=== PATIENT | female | born 1950 | race Caucasian/White ===

== ENCOUNTER 2017-07-30 22:45 | Emergency (ER) | payer MEDICARE, BC ==
[2017-07-30 22:56] VITALS: BP 161/68
--- NOTE | 2017-07-30 23:01 | EDM.PDOC ---
ED HPI GENERAL MEDICAL PROBLEM - General Chief Complaint: Genitourinary Problem Stated Complaint: POSS UTI Time Seen by Provider: 07/30/17 23:01 Source of Information: Reports: Patient History Limitations: Reports: No Limitations - History of Present Illness INITIAL COMMENTS - FREE TEXT/NARRATIVE: 67-year-old female presents to the ED with a 2 to three-day history of dysuria urgency and frequency. She reports that she is prone to urinary tract infections due to having multiple sclerosis incomplete emptying of her bladder at times. Is currently not self catheterizing. She is developed left flank pain tonight with associated nausea and pain. She feels cold all the time with chills but no defined fever. No history of kidney stones. She's had multiple surgeries on her right lower extremity after total knee replacement and then avulsion of the tibial tendon. His not been on antibiotics for this surgery. She is immobilized in a cast brace. Onset: Gradual Onset Date: 07/27/17 (Pain left flank started tonight and this afternoon.) Duration: Day(s):, Getting Worse Location: Reports: Back (Left flank pain) Quality: Reports: Ache, Burning, Throbbing Severity: Moderate Improves with: Reports: None (8 out of 10 pain) Worsens with: Reports: None Context: Denies: Activity, Exercise, Lifting, Sick Contact, Trauma, Other Associated Symptoms: Reports: Fever/Chills, Loss of Appetite (Chills but no fever), Malaise, Nausea/Vomiting. Denies: No Other Symptoms, Confusion, Chest Pain, Cough, cough w sputum, Headaches, Seizure, Shortness of Breath, Syncope Treatments BAGGAGE AGENT: Reports: Other (see below) (Nausea without vomiting none.) Left Flank Pain Score (Numeric/FACES): 6 - Related Data Allergies Allergy/AdvReac Type Severity Reaction Status Date / Time acetaminophen Allergy Other Verified 07/29/15 11:34 [From Excedrin Back & Body] adhesive Allergy Swelling Verified 07/29/15 11:34 aspirin Allergy Other Verified 07/29/15 11:34 [From Excedrin Back & Body] bacitracin Allergy Rash Verified 07/29/15 11:34 calcium carbonate Allergy Other Verified 07/29/15 11:34 [From Excedrin Back & Body] dimethyl fumarate Allergy Other Verified 07/29/15 11:34 [From Tecfidera] glatiramer acetate Allergy Other Verified 07/29/15 11:34 [From Copaxone] gramicidin D Allergy Rash Verified 07/29/15 11:34 interferon beta-1a Allergy Other Verified 07/29/15 11:34 [From Avonex] metronidazole Allergy Rash Verified 07/29/15 11:34 neomycin Allergy Rash Verified 07/29/15 11:34 oxacillin Allergy Rash Verified 07/29/15 11:34 polymyxin B Allergy Rash Verified 07/29/15 11:34 Sulfa (Sulfonamide Allergy Other Verified 07/29/15 11:34 Antibiotics) hydroxyzine AdvReac Agitation Verified 07/29/15 11:34 Home Meds: Home Meds Baclofen 20 mg PO QID 07/29/15 [History] Celecoxib [CeleBREX] 200 mg PO DAILY PRN 07/29/15 [History] Cholecalciferol (Vitamin D3) [Vitamin D3] 5,000 unit PO DAILY 07/29/15 [History] Cranberry Caps 2 cap PO DAILY 07/29/15 [History] Cyanocobalamin (Vitamin B-12) [Vitamin B-12] 1,000 mcg PO DAILY 07/29/15 [ History] Multivitamin [Multivitamins] 2 cap PO BID 07/29/15 [History] Muscle Relax 2 cap PO TID 07/29/15 [History] Occular Formula 2 cap PO DAILY 07/29/15 [History] Oclu Med 1 drop EYEBOTH BID 07/29/15 [History] Perfect Food (Greens) 2 cap PO QID 07/29/15 [History] Psyllium 500 mg PO DAILY 07/29/15 [History] Sertraline HCl 100 mg PO DAILY 07/29/15 [History] Sovereign Silver 5 drop PO DAILY 07/29/15 [History] Ubidecarenone/Red Yeast Rice [Co Q-10 Red Yeast Rice Softgel] 2 cap PO DAILY 06/09 [History] Vitamin B-100 100 mg PO DAILY 07/29/15 [History] rOPINIRole [Requip] 0.5 mg PO QID 07/29/15 [History] Krill Oil 2 cap PO DAILY 07/13/16 [History] Multivitamin with Minerals [Hair, Skin and Nails] 1 cap PO DAILY 07/13/16 [ History] Red Yeast Rice 1,200 mg PO DAILY 07/13/16 [History] Teriflunomide [Aubagio] 14 mg PO DAILY 07/13/16 [History] Nitrofurantoin Monohyd/M-Cryst [Macrobid 100 mg Capsule] 100 mg PO BID #16 capsule 07/31/17 [Rx] Past Medical History Musculoskeletal History: Reports: Muscular Dystrophy Other Musculoskeletal History: diagnosed 2000 Neurological History: Reports: MS (Dx'd 2000) Psychiatric History: Reports: Depression - Past Surgical History Musculoskeletal Surgical History: Reports: Arthroscopic Procedure Social & Family History - Living Situation & Occupation Living situation: Reports: , with Spouse ED ROS GENERAL - Review of Systems Review Of Systems: See Below Constitutional: Reports: Chills, Malaise, Weakness, Fatigue, Decreased Appetite , Weight Loss HEENT: Reports: No Symptoms Respiratory: Reports: No Symptoms Cardiovascular: Reports: No Symptoms Endocrine: Reports: Fatigue GI/Abdominal: Reports: Abdominal Pain (Left upper quadrant abdominal pain left lower quadrant abdominal pain is suprapubic pressure discomfort.) : Reports: Dysuria, Flank Pain, Frequency, Incontinence (Occasional incontinence.), Urgency (Left flank pain) Musculoskeletal: Reports: Back Pain, Other (Right leg pain post total knee replacement and tendon avulsion.) Skin: Reports: No Symptoms Neurological: Reports: Difficulty Walking, Gait Disturbance (Due to multiple sclerosis.), Other Psychiatric: Reports: Anxiety ED EXAM, RENAL/ - Physical Exam Exam: See Below Exam Limited By: No Limitations General Appearance: Alert, WD/WN, Moderate Distress (Appears lethargic and flat affect.) Eye Exam: Bilateral Eye: Normal Inspection Respiratory/Chest: No Respiratory Distress, Lungs Clear, Normal Breath Sounds, No Accessory Muscle Use Cardiovascular: Normal Peripheral Pulses, Regular Rate, Rhythm, No Edema, No Gallop, No Murmur, Bradycardia (50/m.) GI/Abdominal: Normal Bowel Sounds, Soft, Tender. No: Guarding, Rigid ( Tenderness left upper quadrant left midabdomen and suprapubically without rebound or guarding.), Rebound Back Exam: CVA Tenderness (L), Decreased Range of Motion. No: CVA Tenderness (R ) (Mild left CVA tenderness) Extremities: Other (Right lower extremity as had right total knee replacement she is immobilized in cast boot brace.) Neurological: Alert, Oriented, CN II-XII Intact, Normal Cognition, Abnormal Gait , Other (Comes to the ED in a wheelchair.) Psychiatric: Flat Affect Skin Exam: Warm, Dry, Intact, Normal Color, No Rash EKG INTERPRETATION EKG Date: 07/31/17 Time: 00:01 Rhythm: Other (Sinus bradycardia with frequent PACs.) Rate (Beats/Min): 45 Swengel: Normal P-Wave: Present QRS: Other (There is a nonspecific intraventricular conduction delay likely an incomplete right bundle branch block pattern developing.) QT: Prolonged (QT interval is moderately prolonged.) EKG Interpretation Comments: Abnormal ECG Course - Vital Signs Last Recorded V/S: Last Vital Signs Temp 36.9 C 07/30/17 22:52 Pulse 50 L 07/30/17 22:52 Resp 18 07/30/17 22:52 BP 161/68 H 07/30/17 22:52 Pulse Ox 96 07/30/17 22:52 - Orders/Labs/Meds Orders: Active Orders 24 hr Category Date Time Status EKG Documentation Completion [RC] STAT Care 07/30/17 23:57 Active CULTURE URINE [RM] Stat Lab 07/31/17 00:47 Received UA W/MICROSCOPIC [URIN] Stat Lab 07/30/17 23:26 Ordered Dextrose 5%-0.9% NaCl [Dextrose 5%-Normal Saline] 1,000 Med 07/30/17 23:15 Active ml IV ASDIRECTED Medication Orders Dextrose/Sodium Chloride (Dextrose 5%-Normal Saline) 1,000 mls @ 500 mls/hr IV ASDIRECTED FRANTZ Last Admin: 07/30/17 23:33 Dose: 500 mls/hr Labs: Laboratory Tests 07/30/17 07/30/17 07/30/17 Range/Units 23:25 23:25 23:26 WBC 9.95 (3.98-10.04) K/mm3 RBC 4.48 (3.98-5.22) M/mm3 Hgb 13.9 (11.2-15.7) gm/L Hct 41.8 (34.1-44.9) % MCV 93.3 (79.4-94.8) fl MCH 31.0 (25.6-32.2) pg MCHC 33.3 (32.2-35.5) g/dl RDW Std Deviation 43.5 (36.4-46.3) fL Plt Count 214 (182-369) K/mm3 MPV 9.9 (9.4-12.3) fl Neutrophils % (Manual) 70 H (40-60) % Band Neutrophils % 1 (0-10) % Lymphocytes % (Manual) 24 (20-40) % Atypical Lymphs % 0 % Monocytes % (Manual) 2 (2-10) % Eosinophils % (Manual) 2 (0.7-5.8) % Basophils % (Manual) 1 (0.1-1.2) Platelet Estimate Adequate RBC Morph Comment Normal Sodium 141 (136-145) mEq/L Potassium 4.5 (3.5-5.1) mEq/L Chloride 103 (98-107) mEq/L Carbon Dioxide 25 (21-32) mEq/L Anion Gap 17.5 H (5-15) BUN 33 H (7-18) mg/dL Creatinine 1.3 H (0.55-1.02) mg/dL Est Cr Clr Drug Dosing 41.40 mL/min Estimated GFR (MDRD) 41 (>60) mL/min BUN/Creatinine Ratio 25.4 H (14-18) Glucose 132 H (80-115) mg/dL Calcium 9.3 (8.5-10.1) mg/dL Total Bilirubin 0.5 (0.2-1.0) mg/dL AST 17 (15-37) U/L ALT 18 (14-59) U/L Alkaline Phosphatase 96 (46-116) U/L C-Reactive Protein < 0.2 (<1.0) mg/dL Total Protein 7.3 (6.4-8.2) g/dl Albumin 3.7 (3.4-5.0) g/dl Globulin 3.6 gm/dL Albumin/Globulin Ratio 1.0 (1-2) Urine Color Yellow (Yellow) Urine Appearance Slt cloudy H (Clear) Urine pH 5.5 (5.0-8.0) Ur Specific Tutor Key > or = 1.030 (1.005-1.030) Urine Protein 1+ H (Negative) Urine Glucose (UA) Negative (Negative) Urine Ketones Negative (Negative) Urine Occult Blood Negative (Negative) Urine Nitrite Negative (Negative) Urine Bilirubin Negative (Negative) Urine Urobilinogen 0.2 (0.2-1.0) Ur Leukocyte Esterase 2+ H (Negative) Urine RBC 0-5 (0-5) /hpf Urine WBC 10-20 H (0-5) /hpf Ur Epithelial Cells 0-5 (0-5) /hpf Urine Bacteria Moderate H (FEW) /hpf Urine Mucus Many H (FEW) /hpf Meds: Medications Generic Name Dose Route Start Last Admin Trade Name Frenatty PRN Reason Stop Dose Admin Dextrose/Sodium Chloride 1,000 mls @ 500 mls/hr 07/30/17 23:15 07/30/17 23:33 Dextrose 5%-Normal Saline IV 500 mls/hr ASDIRECTED FRANTZ Administration Discontinued Medications Generic Name Dose Route Start Last Admin Trade Name Freq PRN Reason Stop Dose Admin Hydromorphone HCl 0.5 mg 07/30/17 23:09 07/30/17 23:36 Dilaudid IVPUSH 07/30/17 23:10 0.5 mg ONETIME ONE Administration Ceftriaxone Sodium 1 gm/ 100 mls @ 200 mls/hr 07/31/17 00:46 07/31/17 00:52 Sodium Chloride IV 07/31/17 01:15 200 mls/hr ONETIME ONE Administration Ondansetron HCl 4 mg 07/30/17 23:10 07/30/17 23:34 Zofran IVPUSH 07/30/17 23:11 4 mg ONETIME ONE Administration - Radiology Interpretation Free Text/Narrative:: 67-year-old female with known multiple sclerosis presents to the ED with a 2 to three-day history of dysuria urgency and frequency. Tonight she is developed left sided abdominal pain rating up and towards the left flank suggesting developing pyelonephritis. She is known to have recurrent urinary tract infections due to incomplete emptying of her urinary bladder due to MS. Has not been on antibiotics to her recollection for greater than 3 months. Is currently nauseated and pain is 8 out of 10. Plan IV will be normal saline at open. Will give her Dilaudid 0.5 mg IV with Zofran 4 mg IV for pain and nausea relief. Urinalysis of course will be obtained as well as routine lab work including a CRP. Blood cultures will not be obtained at this time as she is afebrile. - Re-Assessments/Exams Free Text/Narrative Re-Assessment/Exam: 07/31/17 00:16 patient's heart rate was noted to drop down as low as 30/m. However her blood pressure is maintained even at this low rate. This most likely represents autonomic nervous system dysfunction. ECG shows sinus bradycardia at 50/m with no signs of a complete heart block. There are frequent PACs as well causing compensatory pauses. There is a nonspecific intraventricular conduction delay most likely an early right bundle branch block developing. 07/31/17 00:41Labs reveal a white count of 9.95 with 70% neutrophils and 1% bands reported. Hemoglobin is 13.9 with hematocrit of 41.8. White count is normal 214,000. Sodium is 141 with potassium of 4.5. Chloride 103 with a bicarbonate of 25. Anion gap is elevated at 17.5 BUN is 33 indicating volume depletion. Creatinine is 1.3. GFR is estimated to be 41. Glucose is 132. Calcium is 9.3. Bilirubin 0.5 liver function otherwise normal. C-reactive protein is less than 0.2. Urinalysis shows 1+ proteinuria 2+ leukocyte esterase and 10-20 WBCs per high-power field with moderate bacteria. Urine culture will be ordered. 07/31/17 01:37 patient has completed her IV Rocephin 1 g. She will be discharged on Macrobid 100 mg twice daily for the next 8 days to fully eradicate urinary tract infection. Advise follow-up with Dr. Montenegro in 14 days time after the antibodies are completed to make sure that there urinary tract infection is completely eradicated. During her stay in the she did develop a significant bradycardia at 30/m. ECG shows sinus bradycardia at 45/m with no blocks appreciated. Her QT interval is markedly prolonged at 523. Therefore it is important to watch out for medications that may prolong the QT interval. She may have autonomic nervous system dysfunction related to her multiple sclerosis. She was advised that if she has fainting episodes or severe dizzy episodes it may be due to development of bradycardia and she may in fact require pacemaker in the future. Departure - Departure Time of Disposition: 01:31 Disposition: Home, Self-Care 01 Condition: Fair Clinical Impression: UTI, Urinary tract infectious disease, Bradycardia by electrocardiogram, Multiple sclerosis - Discharge Information Prescriptions: Nitrofurantoin Monohyd/M-Cryst [Macrobid 100 mg Capsule] 100 mg PO BID #16 capsule Referrals: Trae Layne MD [Primary Care Provider] - Forms: ED Department Discharge Additional Instructions: Evaluation the emergency room today in regards to left flank pain left upper abdominal pain compatible with urinary tract infection symptoms. Associated dysuria urgency and frequency for the last 2-3 days preceding left upper abdominal and flank pain. Lab work reveals a fairly normal white count suggesting stenosis serious bacteremia or bacterial in your bloodstream from infection lower I believe you are starting to develop an early kidney infection on the left side. Urinalysis is positive for infective process. You're treated with initial dose metabolic Rocephin 1 g intravenously while in the ED. Antibiotics will be continued at home i.e. Macrobid 100 mg twice daily for the next 8 days to clear up urinary tract infection completely. Suggest follow-up in the clinic 14 days after finishing antibiotics for repeat urinalysis to make sure the infection has been fully eradicated. Evaluate in the ER her heart rate did drop as low as 30/m. Blood pressure was maintained in spite of this low heart rate. This low heart rate is likely due to something called autonomic nervous system dysfunction which is related to your multiple sclerosis. Her automatic nervous system controls how faster heartbeats how fast we breathe how fast her intestine lines move etc. At this time no interventions are required since her blood pressure was maintained. However if you develop dizzy spells in the future it may be due to a low heart rate and you may require a pacemaker. Follow-up with Dr. Montenegro in this regard as well. - My Orders Last 24 Hours: My Active Orders 07/30/17 23:15 Dextrose 5%-0.9% NaCl [Dextrose 5%-Normal Saline] 1,000 ml IV ASDIRECTED 07/30/17 23:26 UA W/MICROSCOPIC [URIN] Stat 07/30/17 23:57 EKG Documentation Completion [RC] STAT 07/31/17 00:47 CULTURE URINE [RM] Stat - Assessment/Plan Last 24 Hours: My Active Orders 07/30/17 23:15 Dextrose 5%-0.9% NaCl [Dextrose 5%-Normal Saline] 1,000 ml IV ASDIRECTED 07/30/17 23:26 UA W/MICROSCOPIC [URIN] Stat 07/30/17 23:57 EKG Documentation Completion [RC] STAT 07/31/17 00:47 CULTURE URINE [RM] Stat
[2017-07-30] MEDS ORDERED: HYDROmorphone 0.5 MG/0.5 ML SYRINGE IVPUSH ONE (23:09)
[2017-07-30] MEDS ORDERED: Ondansetron 4 MG/2 ML SDV IVPUSH ONE (23:10)
[2017-07-30] MEDS ORDERED: Dextrose 5%-0.9% NaCl 1,000 ML IV SCH (23:15)
[2017-07-31] MEDS ORDERED: cefTRIAXone 1 GM in Sodium Chloride 0.9% 100 ML IV ONE (00:46)
[2017-08-04] MEDS ORDERED: Cefepime 2 GM in Premix Bag 1 BAG IV SCH (08:30)
== END 2017-07-31 01:39 | disposition home or self-care (01) ==
LOC: JD.ED 22:45
DX: G35 Multiple sclerosis (principal); R00.1 Bradycardia, unspecified; N39.0 Urinary tract infection, site not specified; Z88.6 Allergy status to analgesic agent; Z88.8 Allergy status to other drugs, medicaments and biological substances; Z88.1 Allergy status to other antibiotic agents; Z88.2 Allergy status to sulfonamides; Z79.899 Other long term (current) drug therapy
CPT/HCPCS: 36415; 51798; 80053; 81001; 85007; 85027; 86140; 87086; 87088; 87186; 93005; 96361; 96365; 96375; 99284; J0696; J1170; J2405; J7030; J7042; 93010

== ENCOUNTER 2019-03-10 21:51 | Observation (INO) | payer MEDICARE, BC ==
--- NOTE | 2019-03-10 22:07 | EDM.PDOC ---
ED HPI GENERAL MEDICAL PROBLEM - General Chief Complaint: Abdominal Pain Stated Complaint: ABDOMINAL PAIN Time Seen by Provider: 03/10/19 22:01 Source of Information: Reports: Patient History Limitations: Reports: No Limitations - History of Present Illness INITIAL COMMENTS - FREE TEXT/NARRATIVE: 68-year-old female presents to the ED with abdominal pain off and on for the last 2 months. However is been worse the last 5 days. She reports intermittent nausea and vomiting since Friday evening March 06. Intermittent upper abdominal pain as well as right lower quadrant pain. No appreciable chills but feels she has been running a low-grade fever. No genitourinary complaints. Previous abdominal surgeries that of a cholecystectomy and total abdominal hysterectomy and BSO. Having loose diarrhea stools as well without any blood. Since the bag tonight is bilious. Dates she did have a CT of the abdomen and pelvis done yesterday per Dr. Trae Montenegro's orders. She states she did eat a little supper last night but vomited probably this morning upon getting up and most of it was undigested food. She doesn't believe that she got into any bad food and she's not had any steroid or diarrhea. Not drink alcohol. She was started on Prilosec 20 mg once daily on March 08. No other new medications. Denies any hematemesis. Denies any cough or sputum production. Feels very weak and dizzy. Onset: Gradual Onset Date: 03/06/19 (Has been having pain in her abdomen off and on for the last 2 months that has not been investigated. She did weight loss.) Duration: Day(s):, Intermittent, Waxing/Waning Location: Reports: Abdomen (Recurrent nausea and vomiting with upper abdominal pain and also some pain in the right lower quadrant of the abdomen.) Quality: Reports: Ache Severity: Moderate Improves with: Reports: None Worsens with: Reports: Eating, Movement Context: Denies: Activity, Exercise (Attending up and moving around seems to make the nausea worse. She cannot give me a firm history of vertigo symptoms.), Lifting, Sick Contact, Trauma Associated Symptoms: Reports: Fever/Chills, Loss of Appetite, Malaise, Nausea/ Vomiting, Weakness (For last 4-1/2 days). Denies: No Other Symptoms, Confusion , Chest Pain, Cough, cough w sputum, Diaphoresis, Headaches, Rash, Seizure, Shortness of Breath, Syncope (He'll she's been running a low-grade fever.) Treatments [employer]: Reports: Other (see below) (None.) Abdomen Pain Score (Numeric/FACES): 5 - Related Data Allergies Allergy/AdvReac Type Severity Reaction Status Date / Time acetaminophen [From Percocet] Allergy Nausea and Verified 03/10/19 22:17 Vomiting adhesive Allergy Swelling Verified 03/10/19 22:17 bacitracin Allergy Rash Verified 03/10/19 22:17 gramicidin D Allergy Rash Verified 03/10/19 22:17 metronidazole Allergy Rash Verified 03/10/19 22:17 neomycin Allergy Rash Verified 03/10/19 22:17 ondansetron [From Zofran] Allergy Nausea and Verified 03/10/19 22:17 Vomiting oxacillin Allergy Rash Verified 03/10/19 22:17 oxycodone [From Percocet] Allergy Nausea and Verified 03/10/19 22:17 Vomiting pneumococcal vaccine Allergy Rash Verified 03/10/19 22:17 polymyxin B Allergy Rash Verified 03/10/19 22:17 silicone Allergy Redness Verified 03/10/19 22:17 soap Allergy Rash Verified 03/10/19 22:17 Sulfa (Sulfonamide Allergy Rash Verified 03/10/19 22:17 Antibiotics) teriflunomide [From Aubagio] Allergy Other Verified 03/10/19 22:17 dimethyl fumarate AdvReac Other Verified 03/10/19 22:17 [From Tecfidera] glatiramer acetate AdvReac Other Verified 03/10/19 22:17 [From Copaxone] hydroxyzine AdvReac Agitation Verified 03/10/19 22:17 interferon beta-1a AdvReac Other Verified 03/10/19 22:17 [From Avonex] Home Meds: Home Meds Baclofen 20 mg PO TID 07/29/15 [History] Cranberry Caps 500 mg PO DAILY 07/29/15 [History] Multivitamin [Multivitamins] 2 cap PO BID 07/29/15 [History] Oclu Med 1 drop EYEBOTH BID 07/29/15 [History] Psyllium 700 mg PO DAILY 07/29/15 [History] rOPINIRole [Requip] 1 mg PO BID 07/29/15 [History] Magnesium Malate 1,000 mg PO QID 08/03/17 [History] traMADol [Ultram] 50 mg PO Q4HR PRN 08/03/17 [History] Ascorbic Acid [Vitamin C] 1,000 mg PO DAILY 03/10/19 [History] Cholecalciferol (Vitamin D3) [Vitamin D] 5,000 units PO DAILY 03/10/19 [History] Denosumab [Prolia] 60 mg SQ ASDIRECTED 03/10/19 [History] Omeprazole Magnesium [Prilosec Otc] 20 mg PO DAILY 03/10/19 [History] buPROPion [buPROPion XL] 150 mg PO DAILY 03/10/19 [History] Past Medical History Genitourinary History: Reports: Renal Calculus, UTI, Recurrent Musculoskeletal History: Reports: Muscular Dystrophy Other Musculoskeletal History: diagnosed 2000 Neurological History: Reports: MS (Dx'd 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 particularly involving her lower extremities.) Psychiatric History: Reports: Depression Endocrine/Metabolic History: Reports: Osteoporosis, Vitamin D Deficiency - Past Surgical History Musculoskeletal Surgical History: Reports: Arthroscopic Procedure Social & Family History - Family History Family Medical History: Noncontributory - Caffeine Use Caffeine Use: Reports: Tea - Living Situation & Occupation Living situation: Reports: , with Spouse ED ROS GENERAL - Review of Systems Review Of Systems: See Below Constitutional: Reports: Fever, Malaise, Weakness, Fatigue, Decreased Appetite, Weight Loss. Denies: Chills (Subjective) HEENT: Reports: Glasses Respiratory: Reports: No Symptoms, Shortness of Breath Cardiovascular: Reports: No Symptoms Endocrine: Reports: Fatigue GI/Abdominal: Reports: Abdominal Pain (See history of present illness.), Diarrhea, Decreased Appetite (Intermittently since the evening of March 06), Nausea, Vomiting : Reports: No Symptoms Musculoskeletal: Reports: Other (Committed muscle cramps particularly in her calves tonight.) Skin: Reports: No Symptoms Neurological: Reports: Confusion, Dizziness, Numbness, Tingling (Hands and feet) , Difficulty Walking, Weakness (Due to weakness) Psychiatric: Reports: Anxiety, Depression Hematologic/Lymphatic: Reports: No Symptoms Immunologic: Reports: No Symptoms ED EXAM, GI/ABD - Physical Exam Exam: See Below Exam Limited By: No Limitations General Appearance: Alert, WD/WN, Moderate Distress, Other (Appears quite anxious and distraught. She is hanging onto the emesis bag in the examining room. Temperatures 36.9 heart rate was 106 at the bedside. Respiratory of 22 with O2 sats of 95% on room air. BP elevated 1 9498.) Eyes: Bilateral: Normal Appearance (No scleral icterus and no blood flow pallor. ) Throat/Mouth: Normal Inspection, Normal Lips, Normal Oropharynx, Other Head: Atraumatic, Normocephalic (Tongue is moist) Neck: Normal Inspection, Supple, Non-Tender, Full Range of Motion. No: Lymphadenopathy (L), Lymphadenopathy (R) Respiratory/Chest: Lungs Clear (Mild tachypnea.), Normal Breath Sounds, No Accessory Muscle Use, Chest Non-Tender, Respiratory Distress Cardiovascular: Normal Peripheral Pulses, No Edema, No Gallop, No Murmur, No Rub , Tachycardia (Mild tachycardia at the bedside 10 6/m.) GI/Abdominal Exam: Normal Bowel Sounds, Soft, No Organomegaly, No Mass, Pelvis Stable, Tender (Mostly in the epigastrium which appears to be muscular in origin. Also mildly tender in the right lower quadrant near McBurney's point but no real guarding or rebound.). No: Guarding, Rigid, Rebound Back Exam: Normal Inspection, Full Range of Motion. No: CVA Tenderness (L), CVA Tenderness (R) Extremities: Normal Inspection, Normal Range of Motion, Non-Tender, No Pedal Edema Neurological: Alert, Oriented, CN II-XII Intact, Normal Cognition Psychiatric: Anxious Skin Exam: Warm, Dry, Intact, Normal Color, No Rash EKG INTERPRETATION EKG Date: 03/10/19 Time: 22:29 Rhythm: Other (Sinus bradycardia) Rate (Beats/Min): 46 (Patient is dry heaving/vomiting at this time) [place]: Normal P-Wave: Enlarged (Severe left atrial hypertrophy) QRS: Other (There is an incomplete right bundle branch block pattern. Early R- wave transition-consider right ventricular hypertrophy versus septal hypertrophy pattern. Total R-wave in lead 1 suggest left ventricular hypertrophy pattern.) ST-T: Other (Nonspecific T-wave flattening in lead 3 and aVF.) QT: Prolonged (Moderately prolonged) EKG Interpretation Comments: Abnormal ECG Course - Vital Signs Last Recorded V/S: Last Vital Signs Temp 36.9 C 03/10/19 21:58 Pulse 104 H 03/10/19 21:58 Resp 22 H 03/10/19 21:58 BP 194/98 H 03/10/19 21:58 Pulse Ox 95 03/10/19 21:58 - Orders/Labs/Meds Orders: Active Orders 24 hr Category Date Time Status Admission Status [Patient Status] [ADT] Routine ADT 03/11/19 07:11 Ordered EKG Documentation Completion [RC] STAT Care 03/10/19 22:10 Active CULTURE URINE [RM] Stat Lab 03/10/19 23:04 Received D5 1/2 NS w/ 40 mEq/L KCl 1,000 ml Med 03/11/19 07:15 Ordered IV ASDIRECTED Dextrose 5%-0.9% NaCl [Dextrose 5%-Normal Saline] 1,000 Med 03/10/19 23:45 Active ml IV ASDIRECTED Dextrose 5%-Lactated Ringers 1,000 ml Med 03/10/19 22:15 Active IV ASDIRECTED Ketorolac [Toradol] Med 03/10/19 23:30 Active 30 mg IVPUSH ONETIME cefTRIAXone [Rocephin] 2 gm Med 03/10/19 23:45 Active Sodium Chloride 0.9% [Normal Saline] 100 ml IV Q24H Medication Orders Dextrose/Lactated Ringer's (Dextrose 5%-Lactated Ringers) 1,000 mls @ 999 mls/ hr IV ASDIRECTED [facility] Last Admin: 03/10/19 22:31 Dose: 999 mls/hr Ceftriaxone Sodium 2 gm/ (Sodium Chloride) 100 mls @ 200 mls/hr IV Q24H [facility] Last Admin: 03/11/19 00:10 Dose: 200 mls/hr Dextrose/Sodium Chloride (Dextrose 5%-Normal Saline) 1,000 mls @ 200 mls/hr IV ASDIRECTED [facility] Last Admin: 03/11/19 00:54 Dose: 200 mls/hr Potassium Chloride/Dextrose/Sod Cl (D5 1/2 Ns W/ 40 Meq/L Kcl) 1,000 mls @ 150 mls/hr IV ASDIRECTED [facility] Ketorolac Tromethamine (Toradol) 30 mg IVPUSH ONETIME [facility] Last Admin: 03/10/19 23:33 Dose: 30 mg Labs: Laboratory Tests 01/15/20 01/15/20 01/15/20 Range/Units 22:25 22:25 22:25 WBC 5.63 (3.98-10.04) K/mm3 RBC 4.39 (3.98-5.22) M/mm3 Hgb 13.7 (11.2-15.7) gm/dl Hct 40.8 (34.1-44.9) % MCV 92.9 (79.4-94.8) fl MCH 31.2 (25.6-32.2) pg MCHC 33.6 (32.2-35.5) g/dl RDW Std Deviation 45.6 (36.4-46.3) fL Plt Count 280 (182-369) K/mm3 MPV 9.5 (9.4-12.3) fl Neutrophils % (Manual) 59 (40-60) % Band Neutrophils % 3 (0-10) % Lymphocytes % (Manual) 34 (20-40) % Atypical Lymphs % 0 % Monocytes % (Manual) 3 (2-10) % Eosinophils % (Manual) 1 (0.7-5.8) % Basophils % (Manual) 0 L (0.1-1.2) Platelet Estimate Adequate Plt Morphology Comment Normal RBC Morph Comment Normal Sodium 145 (136-145) mEq/L Potassium 2.5 L (3.5-5.1) mEq/L Chloride 105 (98-107) mEq/L Carbon Dioxide 29 (21-32) mEq/L Anion Gap 13.5 (5-15) BUN 8 (7-18) mg/dL Creatinine 1.1 H (0.55-1.02) mg/dL Est Cr Clr Drug Dosing 48.26 mL/min Estimated GFR (MDRD) 50 (>60) mL/min BUN/Creatinine Ratio 7.3 L (14-18) Glucose 134 H (80-115) mg/dL Lactic Acid 1.1 (0.4-2.0) mmol/L Calcium 9.6 (8.5-10.1) mg/dL Magnesium 2.1 (1.8-2.4) mg/dl Total Bilirubin 0.8 (0.2-1.0) mg/dL AST 13 L (15-37) U/L ALT 19 (14-59) U/L Alkaline Phosphatase 131 H (46-116) U/L C-Reactive Protein 0.3 (<1.0) mg/dL NT-Pro-B Natriuret Pep (0-125) pg/mL Total Protein 7.6 (6.4-8.2) g/dl Albumin 3.7 (3.4-5.0) g/dl Globulin 3.9 gm/dL Albumin/Globulin Ratio 1.0 (1-2) Lipase 81 (73-393) U/L Urine Color (Yellow) Urine Appearance (Clear) Urine pH (5.0-8.0) Ur Specific [place] (1.005-1.030) Urine Protein (Negative) Urine Glucose (UA) (Negative) Urine Ketones (Negative) Urine Occult Blood (Negative) Urine Nitrite (Negative) Urine Bilirubin (Negative) Urine Urobilinogen (0.2-1.0) Ur Leukocyte Esterase (Negative) Urine RBC (0-5) /hpf Urine WBC (0-5) /hpf Urine WBC Clumps (NOT SEEN) /hpf Ur Squamous Epith Cells (0-5) /hpf Amorphous Sediment (NOT SEEN) /hpf Urine Bacteria (FEW) /hpf Urine Mucus (FEW) /hpf Ketones (0.0-0.3) mM 03/10/19 03/10/19 03/10/19 Range/Units 22:25 22:25 23:04 WBC (3.98-10.04) K/mm3 RBC (3.98-5.22) M/mm3 Hgb (11.2-15.7) gm/dl Hct (34.1-44.9) % MCV (79.4-94.8) fl MCH (25.6-32.2) pg MCHC (32.2-35.5) g/dl RDW Std Deviation (36.4-46.3) fL Plt Count (182-369) K/mm3 MPV (9.4-12.3) fl Neutrophils % (Manual) (40-60) % Band Neutrophils % (0-10) % Lymphocytes % (Manual) (20-40) % Atypical Lymphs % % Monocytes % (Manual) (2-10) % Eosinophils % (Manual) (0.7-5.8) % Basophils % (Manual) (0.1-1.2) Platelet Estimate Plt Morphology Comment RBC Morph Comment Sodium (136-145) mEq/L Potassium (3.5-5.1) mEq/L Chloride (98-107) mEq/L Carbon Dioxide (21-32) mEq/L Anion Gap (5-15) BUN (7-18) mg/dL Creatinine (0.55-1.02) mg/dL Est Cr Clr Drug Dosing mL/min Estimated GFR (MDRD) (>60) mL/min BUN/Creatinine Ratio (14-18) Glucose (80-115) mg/dL Lactic Acid (0.4-2.0) mmol/L Calcium (8.5-10.1) mg/dL Magnesium (1.8-2.4) mg/dl Total Bilirubin (0.2-1.0) mg/dL AST (15-37) U/L ALT (14-59) U/L Alkaline Phosphatase (46-116) U/L C-Reactive Protein (<1.0) mg/dL NT-Pro-B Natriuret Pep 447 H (0-125) pg/mL Total Protein (6.4-8.2) g/dl Albumin (3.4-5.0) g/dl Globulin gm/dL Albumin/Globulin Ratio (1-2) Lipase (73-393) U/L Urine Color Yellow (Yellow) Urine Appearance Cloudy H (Clear) Urine pH 7.0 (5.0-8.0) Ur Specific [place] 1.020 (1.005-1.030) Urine Protein Negative (Negative) Urine Glucose (UA) Negative (Negative) Urine Ketones Negative (Negative) Urine Occult Blood Trace-intact H (Negative) Urine Nitrite Negative (Negative) Urine Bilirubin Negative (Negative) Urine Urobilinogen 0.2 (0.2-1.0) Ur Leukocyte Esterase 3+ H (Negative) Urine RBC 5-10 H (0-5) /hpf Urine WBC 30-40 H (0-5) /hpf Urine WBC Clumps Occasional (NOT SEEN) /hpf Ur Squamous Epith Cells 0-5 (0-5) /hpf Amorphous Sediment Few H (NOT SEEN) /hpf Urine Bacteria Many H (FEW) /hpf Urine Mucus Moderate H (FEW) /hpf Ketones 0.34 (0.0-0.3) mM 01/16/20 Range/Units 06:12 WBC (3.98-10.04) K/mm3 RBC (3.98-5.22) M/mm3 Hgb (11.2-15.7) gm/dl Hct (34.1-44.9) % MCV (79.4-94.8) fl MCH (25.6-32.2) pg MCHC (32.2-35.5) g/dl RDW Std Deviation (36.4-46.3) fL Plt Count (182-369) K/mm3 MPV (9.4-12.3) fl Neutrophils % (Manual) (40-60) % Band Neutrophils % (0-10) % Lymphocytes % (Manual) (20-40) % Atypical Lymphs % % Monocytes % (Manual) (2-10) % Eosinophils % (Manual) (0.7-5.8) % Basophils % (Manual) (0.1-1.2) Platelet Estimate Plt Morphology Comment RBC Morph Comment Sodium 146 H (136-145) mEq/L Potassium 3.2 L (3.5-5.1) mEq/L Chloride 108 H (98-107) mEq/L Carbon Dioxide 30 (21-32) mEq/L Anion Gap 11.2 (5-15) BUN 7 (7-18) mg/dL Creatinine 1.0 (0.55-1.02) mg/dL Est Cr Clr Drug Dosing 53.09 mL/min Estimated GFR (MDRD) 55 (>60) mL/min BUN/Creatinine Ratio 7.0 L (14-18) Glucose 98 (80-115) mg/dL Lactic Acid (0.4-2.0) mmol/L Calcium 8.9 (8.5-10.1) mg/dL Magnesium (1.8-2.4) mg/dl Total Bilirubin 0.5 (0.2-1.0) mg/dL AST 13 L (15-37) U/L ALT 16 (14-59) U/L Alkaline Phosphatase 113 (46-116) U/L C-Reactive Protein (<1.0) mg/dL NT-Pro-B Natriuret Pep (0-125) pg/mL Total Protein 6.6 (6.4-8.2) g/dl Albumin 3.2 L (3.4-5.0) g/dl Globulin 3.4 gm/dL Albumin/Globulin Ratio 0.9 L (1-2) Lipase (73-393) U/L Urine Color (Yellow) Urine Appearance (Clear) Urine pH (5.0-8.0) Ur Specific [place] (1.005-1.030) Urine Protein (Negative) Urine Glucose (UA) (Negative) Urine Ketones (Negative) Urine Occult Blood (Negative) Urine Nitrite (Negative) Urine Bilirubin (Negative) Urine Urobilinogen (0.2-1.0) Ur Leukocyte Esterase (Negative) Urine RBC (0-5) /hpf Urine WBC (0-5) /hpf Urine WBC Clumps (NOT SEEN) /hpf Ur Squamous Epith Cells (0-5) /hpf Amorphous Sediment (NOT SEEN) /hpf Urine Bacteria (FEW) /hpf Urine Mucus (FEW) /hpf Ketones (0.0-0.3) mM Meds: Medications Generic Name Dose Route Start Last Admin Trade Name Freq PRN Reason Stop Dose Admin Dextrose/Lactated Ringer's 1,000 mls @ 999 mls/hr 03/10/19 22:15 03/10/19 22: 31 Dextrose 5%-Lactated Ringers IV 999 mls/hr ASDIRECTED FRANTZ Administration Ceftriaxone Sodium 2 gm/ 100 mls @ 200 mls/hr 03/10/19 23:45 03/11/19 00:10 Sodium Chloride IV 200 mls/hr Q24H [facility] Administration Dextrose/Sodium Chloride 1,000 mls @ 200 mls/hr 03/10/19 23:45 03/11/19 00:54 Dextrose 5%-Normal Saline IV 200 mls/hr ASDIRECTED [facility] Administration Potassium Chloride/Dextrose/Sod Cl 1,000 mls @ 150 mls/hr 03/11/19 07:15 D5 1/2 Ns W/ 40 Meq/L Kcl IV ASDIRECTED [facility] Ketorolac Tromethamine 30 mg 03/10/19 23:30 03/10/19 23:33 Toradol IVPUSH 30 mg ONETIME [facility] Administration Discontinued Medications Generic Name Dose Route Start Last Admin Trade Name Freq PRN Reason Stop Dose Admin Baclofen 20 mg 03/10/19 23:22 03/10/19 23:35 Lioresal PO 03/10/19 23:23 20 mg ONETIME ONE Administration Promethazine HCl 25 mg/ Sodium 51 mls @ 100 mls/hr 03/10/19 22:18 03/10/19 22 :32 Chloride IV 03/10/19 22:48 100 mls/hr ONETIME ONE Administration Potassium Chloride 10 meq/ 100 mls @ 100 mls/hr 03/10/19 23:15 03/11/19 06:11 Premix IV 03/11/19 05:14 100 mls/hr Q1H FR[facility]Z Administration Lactated Ringer's 1,000 mls @ 200 mls/hr 03/10/19 23:45 Ringers, Lactated IV ASDIRECTED FRANTZ Promethazine HCl 25 mg/ Sodium 51 mls @ 100 mls/hr 03/11/19 03:53 03/11/19 04 :35 Chloride IV 03/11/19 04:23 100 mls/hr ONETIME ONE Administration Lorazepam 1 mg 03/10/19 23:53 03/10/19 23:59 Ativan IVPUSH 03/10/19 23:54 1 mg ONETIME ONE Administration Ondansetron HCl 4 mg 03/10/19 22:10 03/10/19 22:18 Zofran IVPUSH 03/10/19 22:11 Not Given ONETIME ONE Ropinirole HCl 1 mg 03/10/19 23:22 03/10/19 23:35 Requip PO 03/10/19 23:23 1 mg ONETIME ONE Administration - Radiology Interpretation Free Text/Narrative:: 68-year-old female presents the ED with a history of acute intermittent nausea and vomiting for the last 4-1/2 days. Associated intermittent loose watery diarrhea. Complaining of epigastric pain and recurrent vomiting tonight. Emesis is bilious and she never had any he met emesis. She hasn't appreciated blood on wiping either with the diarrhea. She feels she is running a low-grade fever but she is afebrile at present. Tender in the epigastrium on examination and slightly in the right lower quadrant of the abdomen without rebound or guarding. Apparently she had a CT of the abdomen and pelvis performed yesterday by Dr. Trae Chacon and I will review this. He does not drink alcohol. Have pancreatitis. Clinically she appears to be volume depleted and is expansion cramping in her lower extremities. Routine labs will be performed and a urinalysis. She'll receive D5 Ringer's lactate at open. Given Phenergan 25 mg IV over 15 minutes as she is allergic to Zofran and Reglan make cause problems with her SERTRALINE. I reviewed the CT scan of the abdomen and pelvis done yesterday. Visualized portion of the lung bases appear to be clear. There is a small to moderate-sized hiatal hernia. Stomach is filled with contrast. There is minimal intraductal dilatation in the liver previous: Previous cholecystectomy noted. Pancreas appears to be within normal limits. Left kidney shows 3 stones within the renal parenchyma largest is 4 mm. There is no stones in the right renal parenchyma. No signs of an obstructing stone in the ureters. She is a small fat-containing umbilical hernia. Visualized portions of the bowel small and large appeared to be within normal limits with no obvious diverticulitis. No retroperitoneal adenopathy noted. Bladder appears to fill normally. She has old fractures of both the superior and inferior pubic rami on both sides of her pelvis that appear to be ununited. - Re-Assessments/Exams Free Text/Narrative Re-Assessment/Exam: 03/10/19 23:20 Labs reveal a normal white count at 5.63. Differential pending hemoglobin is 13.7 with hematocrit of 40.8. Platelet count is 280,000. Sodium is 145 with a potassium very low at 2.5. Chloride 105 with bicarbonate of 29. Anion gap is 13.5. BUN is 8 with a creatinine of 1.1. Estimated GFR is 50. Glucose is 134 with a lactic acid of 1.1. Calcium is 9.6. Magnesium is 2.1. Bilirubin is 0.8 alkaline phosphatase stays mildly elevated 131. Transaminases normal. C-reactive protein is 0.3. Total protein 7.6 with an albumin fraction of 3.7. Lipase is normal at 81. Serum ketones are slightly elevated at 0.34. Urinalysis shows 3+ leukocyte esterase and the Micronase pending. At present the patient is cramping very badly arms and legs. She will build to keep down a dose of baclofen which she takes at home and I will therefore give her 20 mg by mouth. She will receive potassium 10 mg per hour 6 consecutive doses. IV fluids will be D5 Ringer's lactate overnight. She is willing now to take some Toradol as it'll help with some of the cramping pain. Also be given her Requip 1 mg by mouth as well. Plan at this time is to keep her in the ED overnight to rehydrate her replenish her potassium levels and see if we can discharge her home. She can always be admitted later this morning. He be reveals air throughout the large bowel with mild retention of barium from yesterday's CT exam with oral contrast. There are few dilated loops of small bowel suggestive of a mild ileus type pattern central abdomen. 03/10/19 23:53 Still experiencing a good deal of cramps in her extremities. Discussed with her about using some Ativan to help allow her to relax and sleep and perhaps take away some of the cramping. She is willing to give it a try. Her second liter fluids will be Ringer's lactate at 200 mils per hour. Given 1 mg of Ativan IV.Differential on the white count is 59% neutrophils and 3% bands and 34% lymphocytes. Urinalysis shows 5-10 RBCs per high-power field and 30-40 white blood cells per high power field with occasional white blood cell clumps. Many bacteria appreciated. Urine culture ordered. She will be given Rocephin 2 g intravenously while in the ED. She has no signs or symptoms of UTI. She relates it's been at least 6 months and she was treated for UTI. 03/11/19 01:14 patient has been able to sleep since given the Ativan 1 mg IV. She's not been sleeping for about three quarters of an hour. BNP did come back mildly elevated at 457. 03/11/19 03:54 she reports that she is nauseated again mildly. I'm therefore going to repeat the Phenergan 25 mg IV as it's been about 5-1/2 hours since the last dose was given. Lab work is been ordered for 0600 hrs. to repeat her potassium. 03/11/19 04:20: Patient is sleeping at this time. 03/11/19 07:14 : 0600 labs done as repeat this morning. Sodium is 146. Potassium markedly improved to 3.2 from 2.5. Chloride is now 108 bicarbonate is 30 and a gap is 11.2. Creatinine is 1.0 EGFR is improved from 50-55. Glucose is 98. Calcium is 8.9. Liver function remains normal. Total protein is slightly low at 6.6 with an albumin fraction of 3.2. I spoke with manager production hospitalist Dr. Vazquez and he is accepted care. Patient be admitted for observation status to the [facility] floor on telemetry. She has not yet been able to keep any solids down and she has kept down only has minimal amount of clear fluids. She remains quite drowsy from the Phenergan being used to control her nausea and vomiting. She's been complaining of abdominal pain for the last 2 months. Unclear if she has a gastroparesis or possible H. pylori. Just a stool sampling for H. pylori. Departure - Departure Time of Disposition: 07:17 Disposition: Refer to Observation Condition: Fair Clinical Impression: Muscle spasms of both lower extremities - Discharge Information Referrals: Trae Layne MD [Primary Care Provider] - Forms: ED Department Discharge Sepsis Event Note - Focused Exam Vital Signs: Vital Signs Temp Pulse Resp BP Pulse Ox 03/10/19 21:58 36.9 C 104 H 22 H 194/98 H 95 Date Exam was Performed: 03/11/19 Time Exam was Performed: 07:14 - My Orders Last 24 Hours: My Active Orders 03/10/19 22:10 EKG Documentation Completion [RC] STAT 03/10/19 22:15 Dextrose 5%-Lactated Ringers 1,000 ml IV ASDIRECTED 03/10/19 23:04 CULTURE URINE [RM] Stat 03/10/19 23:30 Ketorolac [Toradol] 30 mg IVPUSH ONETIME 03/10/19 23:45 Dextrose 5%-0.9% NaCl [Dextrose 5%-Normal Saline] 1,000 ml IV ASDIRECTED cefTRIAXone [Rocephin] 2 gm Sodium Chloride 0.9% [Normal Saline] 100 ml IV Q24H 03/11/19 07:11 Admission Status [Patient Status] [ADT] Routine 03/11/19 07:15 D5 1/2 NS w/ 40 mEq/L KCl 1,000 ml IV ASDIRECTED - Assessment/Plan Last 24 Hours: My Active Orders 03/10/19 22:10 EKG Documentation Completion [RC] STAT 03/10/19 22:15 Dextrose 5%-Lactated Ringers 1,000 ml IV ASDIRECTED 03/10/19 23:04 CULTURE URINE [RM] Stat 03/10/19 23:30 Ketorolac [Toradol] 30 mg IVPUSH ONETIME 03/10/19 23:45 Dextrose 5%-0.9% NaCl [Dextrose 5%-Normal Saline] 1,000 ml IV ASDIRECTED cefTRIAXone [Rocephin] 2 gm Sodium Chloride 0.9% [Normal Saline] 100 ml IV Q24H 03/11/19 07:11 Admission Status [Patient Status] [ADT] Routine 03/11/19 07:15 D5 1/2 NS w/ 40 mEq/L KCl 1,000 ml IV ASDIRECTED
[2019-03-10] MEDS ORDERED: Ondansetron 4 MG/2 ML SDV IVPUSH ONE (22:10)
[2019-03-10] MEDS ORDERED: Dextrose 5%-Lactated Ringers 1,000 ML IV SCH (22:15)
[2019-03-10] MEDS ORDERED: Promethazine 25 MG in Sodium Chloride 0.9% 50 ML IV ONE (22:18)
[2019-03-10] MEDS ORDERED: rOPINIRole 1 MG Tab PO ONE (23:22)
[2019-03-10] MEDS ORDERED: Baclofen 10 MG Tab PO ONE (23:22)
[2019-03-10] MEDS: Potassium Chloride 10 MEQ in Premix Bag 1 BAG IV SCH (23:24)
[2019-03-10] MEDS ORDERED: Ketorolac 30 MG/ML SDV IVPUSH SCH (23:30)
[2019-03-10] MEDS ORDERED: Dextrose 5%-0.9% NaCl 1,000 ML IV SCH (23:45)
[2019-03-10] MEDS ORDERED: cefTRIAXone 2 GM in Sodium Chloride 0.9% 100 ML IV SCH (23:45)
[2019-03-10] MEDS ORDERED: Lactated Ringers 1,000 ML IV SCH (23:45)
[2019-03-10] MEDS ORDERED: LORazepam 2 MG/ML SDV IVPUSH ONE (23:53)
[2019-03-11] MEDS: Potassium Chloride 10 MEQ in Premix Bag 1 BAG IV SCH ×5 (01:03→06:11)
[2019-03-11] MEDS ORDERED: Promethazine 25 MG in Sodium Chloride 0.9% 50 ML IV ONE (03:53)
--- NOTE | 2019-03-11 06:54 | CR ---
Abdomen: Supine view of the abdomen was obtained. Comparison: Prior CT abdomen and pelvis exam of 03/09/19. Old partially healed fractures are noted within the inferior and superior pubic ramus on both sides. Bowel gas pattern is normal. Calcification is noted within the right pelvis compatible with phlebolith. Previous cholecystectomy is noted. Impression: 1. Findings as noted above. 2. Nothing acute is appreciated. Diagnostic code #2 This report was dictated in [place] Standard Time
[2019-03-11] MEDS ORDERED: D5 1/2 NS w/ 40 mEq/L KCl 1,000 ML IV SCH (07:15)
--- NOTE | 2019-03-11 08:57 | PCM.HP.2 ---
H&P History of Present Illness - General Date of Service: 03/11/19 Admit Problem/Dx: Admission Diagnosis/Problem Admission Diagnosis/Problem Nausea and vomiting in adult patient Source of Information: Patient, Old Records, Provider, RN, RN Notes Reviewed History Limitations: Reports: No Limitations - History of Present Illness Initial Comments - Free Text/Narative: Ann Zhu is a 68 yo female patient who presents to ED on 03/10/2019 with abdominal pain. She reports this pain is been on and off for the past 2 months but has been worse over the past 5 days and accompanied by occasional nausea and vomiting. Nausea and vomiting started on March 06. Reports intermittent epigastric pain and right lower quadrant pain but no chills. She says she has been having a low-grade fever. Denies any genitourinary complaints. She did have a cholecystectomy and total hysterectomy , along with a BSO. She reports loose diarrhea stools with no melena or hematochezia. Vomiting is bilious.Abdominal CT scan was obtained the day prior to visiting her ED and interpreted by Dr. Mirza as "1. United inferior and superior Pubic rami fractures on both sides. 2. Several nonobstructing calculi within the left kidney. 3. Nothing acute is appreciated on CT study of the abdomen and pelvis." Denies any bad food recent steroids or diarrhea. Denies any recent alcohol intake. Reports restarted on Prozac 20 mg once daily on March 08 but denies any other medications. Denies any hematemesis , cough, sputum. Reports she does feel weak and dizzy. In the ED temp was 36.9 Celsius. Pulse 104. Respirations 22. Blood pressure 194/98. Pulse ox 95%. EKG was obtained and interpreted by The ED provider as being sinus bradycardia at 46 bpm. This was obtained while the patient was dry heaving. There is severe left atrial hypertrophy and an incomplete right bundle branch block pattern with early R wave transition. Consider right ventricular hypertrophy versus septal hypertrophy pattern. Poor R wave in lead I suggest left ventricular hypertrophy pattern. There is nonspecific T wave flattening in lead III and aVF. QT is moderately prolonged. CBC is obtained and is grossly normal with no leukocytosis. BMP is obtained with a sodium of 145. A very low potassium of 2.5. Chloride 105. Carbon oxide 29. Anion gap 13.5. BUN is 8. Creatinine is elevated at 1.1. EGFR is 50. Glucose is 134. Lactic acid is 1.1. Calcium 9.6. Magnesium 2.1. Bilirubin 0.8. AST is 13, ALT 19, alkaline phosphatase 131. CRP is 0.3. Albumin is 3.7. Lipase is 81. proBNP is elevated at 447. Urine Ketones are 0.34. UA is obtained and is positive with yellow cloudy urine, trace occult blood, 3+ leukocyte esterase, 5-10 RBCs, 30-40 WBCs, occasional WBC clumps, few amorphous sediment, and many bacteria. Moderate urine mucus is also noted. She is given IV potassium in the ER along with Toradol and started on 2 g of Rocephin. She is also given IV fluids with potassium in D5NS. Repeat BMP in the morning shows a slightly elevated sodium of 146 and a potassium that has improved to 3.2. GFR is also improved to 55. She is allergic to Zofran and Reglan so Phenergan 25 mg IV is given for nausea. She continues to have nausea and vomiting and potassium remains somewhat low at 3.2. Decision was therefore made to admit her to the medical floor on telemetry observation status to control her nausea and replenish potassium. 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 PCP is Dr. Jazz Mcmahan. Abdomen Pain Score (Numeric/FACES): 5 - Related Data Allergies/Adverse Reactions: Allergies Allergy/AdvReac Type Severity Reaction Status Date / Time acetaminophen [From Percocet] Allergy Nausea and Verified 03/10/19 22:17 Vomiting adhesive Allergy Swelling Verified 03/10/19 22:17 bacitracin Allergy Rash Verified 03/10/19 22:17 gramicidin D Allergy Rash Verified 03/10/19 22:17 metronidazole Allergy Rash Verified 03/10/19 22:17 neomycin Allergy Rash Verified 03/10/19 22:17 ondansetron [From Zofran] Allergy Nausea and Verified 03/10/19 22:17 Vomiting oxacillin Allergy Rash Verified 03/10/19 22:17 oxycodone [From Percocet] Allergy Nausea and Verified 03/10/19 22:17 Vomiting pneumococcal vaccine Allergy Rash Verified 03/10/19 22:17 polymyxin B Allergy Rash Verified 03/10/19 22:17 silicone Allergy Redness Verified 03/10/19 22:17 soap Allergy Rash Verified 03/10/19 22:17 Sulfa (Sulfonamide Allergy Rash Verified 03/10/19 22:17 Antibiotics) teriflunomide [From Aubagio] Allergy Other Verified 03/10/19 22:17 dimethyl fumarate AdvReac Other Verified 03/10/19 22:17 [From Tecfidera] glatiramer acetate AdvReac Other Verified 03/10/19 22:17 [From Copaxone] hydroxyzine AdvReac Agitation Verified 03/10/19 22:17 interferon beta-1a AdvReac Other Verified 03/10/19 22:17 [From Avonex] Home Medications: Home Meds Baclofen 20 mg PO TID 07/29/15 [History] Cranberry Caps 500 mg PO DAILY 07/29/15 [History] Multivitamin [Multivitamins] 2 cap PO BID 07/29/15 [History] Oclu Med 1 drop EYEBOTH BID 07/29/15 [History] Psyllium 700 mg PO DAILY 07/29/15 [History] rOPINIRole [Requip] 1 mg PO BID 07/29/15 [History] Magnesium Malate 1,000 mg PO QID 08/03/17 [History] traMADol [Ultram] 50 mg PO Q4HR PRN 08/03/17 [History] Ascorbic Acid [Vitamin C] 1,000 mg PO DAILY 03/10/19 [History] Cholecalciferol (Vitamin D3) [Vitamin D] 5,000 units PO DAILY 03/10/19 [History] Denosumab [Prolia] 60 mg SQ ASDIRECTED 03/10/19 [History] Omeprazole Magnesium [Prilosec Otc] 20 mg PO DAILY 03/10/19 [History] buPROPion [buPROPion XL] 150 mg PO DAILY 03/10/19 [History] Past Medical History HEENT History: Reports: Impaired Vision Gastrointestinal History: Reports: Other (See Below) Other Gastrointestinal History: chronic abdominal pain Genitourinary History: Reports: Renal Calculus, UTI, Recurrent Musculoskeletal History: Reports: Muscular Dystrophy Other Musculoskeletal History: diagnosed 2000 Neurological History: Reports: MS Psychiatric History: Reports: Depression Endocrine/Metabolic History: Reports: Osteoporosis, Vitamin D Deficiency - Infectious Disease History Infectious Disease History: Reports: Chicken Pox, Measles - Past Surgical History HEENT Surgical History: Reports: Tonsillectomy GI Surgical History: Reports: Cholecystectomy Musculoskeletal Surgical History: Reports: Arthroscopic Procedure Social & Family History - Family History Family Medical History: Noncontributory - Tobacco Use Smoking Status *Q: Former Smoker Used Tobacco, but Quit: No Second Hand Smoke Exposure: No - Caffeine Use Caffeine Use: Reports: Soda, Tea - Recreational Drug Use Recreational Drug Use: No - Living Situation & Occupation Living situation: Reports: , with Spouse H&P Review of Systems - Review of Systems: Review Of Systems: See Below General: Reports: Malaise, Weakness, Fatigue. Denies: Fever (reports occasional "low grade" but none documented on floor or in ED ), Chills HEENT: Reports: No Symptoms. Denies: Headaches, Sore Throat Pulmonary: Reports: Cough (occasional for several days ). Denies: Shortness of Breath, Wheezing, Pleuritic Chest Pain, Sputum Cardiovascular: Reports: No Symptoms. Denies: Chest Pain, Palpitations, Orthopnea Gastrointestinal: Reports: Abdominal Pain (epigastric ). Denies: Constipation, Diarrhea (prior but none for past few days ), Nausea (none currently ), Vomiting (none since on floor ) Genitourinary: Reports: No Symptoms. Denies: Pain Musculoskeletal: Reports: Leg Pain (chronic 2/2 spasticity from MS) Skin: Reports: No Symptoms. Denies: Cyanosis Psychiatric: Reports: No Symptoms. Denies: Confusion Neurological: Reports: Dizziness (occasional ), Pre-Existing Deficit, Tingling ( ectremities ), Difficulty Walking, Weakness, Gait Disturbance Hematologic/Lymphatic: Reports: No Symptoms Immunologic: Reports: No Symptoms Exam - Exam Exam: See Below - Vital Signs Vital Signs: Last Vital Signs Temp 98.1 F 03/11/19 08:13 Pulse 44 L 03/11/19 08:13 Resp 18 03/11/19 08:13 BP 155/83 H 03/11/19 08:13 Pulse Ox 95 03/11/19 08:13 Weight: 475 lb 5.066 oz - Exam Quality Assessment: DVT Prophylaxis General: Alert, Oriented, Cooperative. No: Mild Distress HEENT: Conjunctiva Clear, EACs Clear, Hearing Intact, Mucosa Moist & [place], Nares Patent, PERRLA Neck: Supple, Trachea Midline Lungs: Clear to Auscultation, Normal Respiratory Effort. No: Crackles, Rales, Rhonchi, Wheezing Cardiovascular: Regular Rhythm, Bradycardia GI/Abdominal Exam: Normal Bowel Sounds, Soft, No Distention, Tender (Epigastric region) (Female) Exam: Deferred Rectal (Female) Exam: Deferred Extremities: Normal Inspection, Normal Range of Motion, Non-Tender, No Pedal Edema, Normal Capillary Refill Skin: Warm, Dry, Intact Neurological: Cranial Nerves Intact (grossly ) Neuro Extensive - Mental Status: Alert, Oriented x3 - Patient Data Lab Results Last 24 hrs: Laboratory Results - last 24 hr 03/10/19 03/10/19 03/10/19 Range/Units 22:25 22:25 22:25 WBC 5.63 (3.98-10.04) K/mm3 RBC 4.39 (3.98-5.22) M/mm3 Hgb 13.7 (11.2-15.7) gm/dl Hct 40.8 (34.1-44.9) % MCV 92.9 (79.4-94.8) fl MCH 31.2 (25.6-32.2) pg MCHC 33.6 (32.2-35.5) g/dl RDW Std Deviation 45.6 (36.4-46.3) fL Plt Count 280 (182-369) K/mm3 MPV 9.5 (9.4-12.3) fl Neutrophils % (Manual) 59 (40-60) % Band Neutrophils % 3 (0-10) % Lymphocytes % (Manual) 34 (20-40) % Atypical Lymphs % 0 % Monocytes % (Manual) 3 (2-10) % Eosinophils % (Manual) 1 (0.7-5.8) % Basophils % (Manual) 0 L (0.1-1.2) Platelet Estimate Adequate Plt Morphology Comment Normal RBC Morph Comment Normal Sodium 145 (136-145) mEq/L Potassium 2.5 L (3.5-5.1) mEq/L Chloride 105 (98-107) mEq/L Carbon Dioxide 29 (21-32) mEq/L Anion Gap 13.5 (5-15) BUN 8 (7-18) mg/dL Creatinine 1.1 H (0.55-1.02) mg/dL Est Cr Clr Drug Dosing 48.26 mL/min Estimated GFR (MDRD) 50 (>60) mL/min BUN/Creatinine Ratio 7.3 L (14-18) Glucose 134 H (80-115) mg/dL Lactic Acid 1.1 (0.4-2.0) mmol/L Calcium 9.6 (8.5-10.1) mg/dL Magnesium 2.1 (1.8-2.4) mg/dl Total Bilirubin 0.8 (0.2-1.0) mg/dL AST 13 L (15-37) U/L ALT 19 (14-59) U/L Alkaline Phosphatase 131 H (46-116) U/L C-Reactive Protein 0.3 (<1.0) mg/dL NT-Pro-B Natriuret Pep (0-125) pg/mL Total Protein 7.6 (6.4-8.2) g/dl Albumin 3.7 (3.4-5.0) g/dl Globulin 3.9 gm/dL Albumin/Globulin Ratio 1.0 (1-2) Lipase 81 (73-393) U/L Urine Color (Yellow) Urine Appearance (Clear) Urine pH (5.0-8.0) Ur Specific Grant (1.005-1.030) Urine Protein (Negative) Urine Glucose (UA) (Negative) Urine Ketones (Negative) Urine Occult Blood (Negative) Urine Nitrite (Negative) Urine Bilirubin (Negative) Urine Urobilinogen (0.2-1.0) Ur Leukocyte Esterase (Negative) Urine RBC (0-5) /hpf Urine WBC (0-5) /hpf Urine WBC Clumps (NOT SEEN) /hpf Ur Squamous Epith Cells (0-5) /hpf Amorphous Sediment (NOT SEEN) /hpf Urine Bacteria (FEW) /hpf Urine Mucus (FEW) /hpf Ketones (0.0-0.3) mM 03/10/19 03/10/19 03/10/19 Range/Units 22:25 22:25 23:04 WBC (3.98-10.04) K/mm3 RBC (3.98-5.22) M/mm3 Hgb (11.2-15.7) gm/dl Hct (34.1-44.9) % MCV (79.4-94.8) fl MCH (25.6-32.2) pg MCHC (32.2-35.5) g/dl RDW Std Deviation (36.4-46.3) fL Plt Count (182-369) K/mm3 MPV (9.4-12.3) fl Neutrophils % (Manual) (40-60) % Band Neutrophils % (0-10) % Lymphocytes % (Manual) (20-40) % Atypical Lymphs % % Monocytes % (Manual) (2-10) % Eosinophils % (Manual) (0.7-5.8) % Basophils % (Manual) (0.1-1.2) Platelet Estimate Plt Morphology Comment RBC Morph Comment Sodium (136-145) mEq/L Potassium (3.5-5.1) mEq/L Chloride (98-107) mEq/L Carbon Dioxide (21-32) mEq/L Anion Gap (5-15) BUN (7-18) mg/dL Creatinine (0.55-1.02) mg/dL Est Cr Clr Drug Dosing mL/min Estimated GFR (MDRD) (>60) mL/min BUN/Creatinine Ratio (14-18) Glucose (80-115) mg/dL Lactic Acid (0.4-2.0) mmol/L Calcium (8.5-10.1) mg/dL Magnesium (1.8-2.4) mg/dl Total Bilirubin (0.2-1.0) mg/dL AST (15-37) U/L ALT (14-59) U/L Alkaline Phosphatase (46-116) U/L C-Reactive Protein (<1.0) mg/dL NT-Pro-B Natriuret Pep 447 H (0-125) pg/mL Total Protein (6.4-8.2) g/dl Albumin (3.4-5.0) g/dl Globulin gm/dL Albumin/Globulin Ratio (1-2) Lipase (73-393) U/L Urine Color Yellow (Yellow) Urine Appearance Cloudy H (Clear) Urine pH 7.0 (5.0-8.0) Ur Specific Grant 1.020 (1.005-1.030) Urine Protein Negative (Negative) Urine Glucose (UA) Negative (Negative) Urine Ketones Negative (Negative) Urine Occult Blood Trace-intact H (Negative) Urine Nitrite Negative (Negative) Urine Bilirubin Negative (Negative) Urine Urobilinogen 0.2 (0.2-1.0) Ur Leukocyte Esterase 3+ H (Negative) Urine RBC 5-10 H (0-5) /hpf Urine WBC 30-40 H (0-5) /hpf Urine WBC Clumps Occasional (NOT SEEN) /hpf Ur Squamous Epith Cells 0-5 (0-5) /hpf Amorphous Sediment Few H (NOT SEEN) /hpf Urine Bacteria Many H (FEW) /hpf Urine Mucus Moderate H (FEW) /hpf Ketones 0.34 (0.0-0.3) mM 03/11/19 Range/Units 06:12 WBC (3.98-10.04) K/mm3 RBC (3.98-5.22) M/mm3 Hgb (11.2-15.7) gm/dl Hct (34.1-44.9) % MCV (79.4-94.8) fl MCH (25.6-32.2) pg MCHC (32.2-35.5) g/dl RDW Std Deviation (36.4-46.3) fL Plt Count (182-369) K/mm3 MPV (9.4-12.3) fl Neutrophils % (Manual) (40-60) % Band Neutrophils % (0-10) % Lymphocytes % (Manual) (20-40) % Atypical Lymphs % % Monocytes % (Manual) (2-10) % Eosinophils % (Manual) (0.7-5.8) % Basophils % (Manual) (0.1-1.2) Platelet Estimate Plt Morphology Comment RBC Morph Comment Sodium 146 H (136-145) mEq/L Potassium 3.2 L (3.5-5.1) mEq/L Chloride 108 H (98-107) mEq/L Carbon Dioxide 30 (21-32) mEq/L Anion Gap 11.2 (5-15) BUN 7 (7-18) mg/dL Creatinine 1.0 (0.55-1.02) mg/dL Est Cr Clr Drug Dosing 53.09 mL/min Estimated GFR (MDRD) 55 (>60) mL/min BUN/Creatinine Ratio 7.0 L (14-18) Glucose 98 (80-115) mg/dL Lactic Acid (0.4-2.0) mmol/L Calcium 8.9 (8.5-10.1) mg/dL Magnesium (1.8-2.4) mg/dl Total Bilirubin 0.5 (0.2-1.0) mg/dL AST 13 L (15-37) U/L ALT 16 (14-59) U/L Alkaline Phosphatase 113 (46-116) U/L C-Reactive Protein (<1.0) mg/dL NT-Pro-B Natriuret Pep (0-125) pg/mL Total Protein 6.6 (6.4-8.2) g/dl Albumin 3.2 L (3.4-5.0) g/dl Globulin 3.4 gm/dL Albumin/Globulin Ratio 0.9 L (1-2) Lipase (73-393) U/L Urine Color (Yellow) Urine Appearance (Clear) Urine pH (5.0-8.0) Ur Specific Grant (1.005-1.030) Urine Protein (Negative) Urine Glucose (UA) (Negative) Urine Ketones (Negative) Urine Occult Blood (Negative) Urine Nitrite (Negative) Urine Bilirubin (Negative) Urine Urobilinogen (0.2-1.0) Ur Leukocyte Esterase (Negative) Urine RBC (0-5) /hpf Urine WBC (0-5) /hpf Urine WBC Clumps (NOT SEEN) /hpf Ur Squamous Epith Cells (0-5) /hpf Amorphous Sediment (NOT SEEN) /hpf Urine Bacteria (FEW) /hpf Urine Mucus (FEW) /hpf Ketones (0.0-0.3) mM Result Diagrams: 03/10/19 22:25 03/11/19 06:12 EKG INTERPRETATION EKG Date: 03/11/19 Time: 10:37 Rhythm: Other (Sinus Bradycarda) Rate (Beats/Min): 42 P-Wave: Present Comparison: Change From Previous EKG EKG Interpretation Comments: Single PVC noted. Nonspecific intraventricular conduction delay. Nonspecific repolarization abnormality in diffuse leads. QTc is 455. Sepsis Event Note - Evaluation Sepsis Screening Result: Possible Sepsis Risk - Focused Exam Vital Signs: Vital Signs Temp Temp Pulse Pulse Resp BP BP 03/11/19 08:13 98.1 F 44 L 18 155/83 H 03/10/19 21:58 98.4 F 104 H 22 H 194/98 H Pulse Ox 03/11/19 08:13 95 03/10/19 21:58 95 Date Exam was Performed: 03/11/19 Time Exam was Performed: 14:00 - Problem List (1) Osteoporosis SNOMED Code(s): 05419590 ICD Code: M81.0 - AGE-RELATED OSTEOPOROSIS W/O CURRENT PATHOLOGICAL FRACTURE Status: Chronic Priority: Medium Current Visit: No Qualifiers: Osteoporosis type: unspecified Presence of current pathological fracture: unspecified Qualified Code(s): M81.0 - Age-related osteoporosis without current pathological fracture (2) Renal calculi SNOMED Code(s): 32671807 ICD Code: N20.0 - CALCULUS OF KIDNEY Status: Chronic Priority: Low Current Visit: No (3) Muscular dystrophy SNOMED Code(s): 03919870 ICD Code: G71.00 - MUSCULAR DYSTROPHY, UNSPECIFIED Status: Chronic Priority: Medium Current Visit: Yes (4) Recurrent UTI SNOMED Code(s): 387603332 ICD Code: N39.0 - URINARY TRACT INFECTION, SITE NOT SPECIFIED Status: Chronic Priority: Medium Current Visit: Yes (5) Depression SNOMED Code(s): 17854867 ICD Code: F32.9 - MAJOR DEPRESSIVE DISORDER, SINGLE EPISODE, UNSPECIFIED Status: Chronic Priority: Low Current Visit: No Qualifiers: Depression Type: other depression Qualified Code(s): F32.89 - Other specified depressive episodes (6) Vitamin D deficiency SNOMED Code(s): 50418361 ICD Code: E55.9 - VITAMIN D DEFICIENCY, UNSPECIFIED Status: Chronic Priority: Low Current Visit: No (7) Chronic abdominal pain SNOMED Code(s): 102723707 ICD Code: R10.9 - UNSPECIFIED ABDOMINAL PAIN; G89.29 - OTHER CHRONIC PAIN Status: Acute Priority: High Current Visit: Yes (8) Hypokalemia due to excessive gastrointestinal loss of potassium SNOMED Code(s): 55888889 ICD Code: E87.6 - HYPOKALEMIA Status: Acute Priority: High Current Visit: Yes (9) Intractable nausea and vomiting SNOMED Code(s): 607948371 ICD Code: R11.2 - NAUSEA WITH VOMITING, UNSPECIFIED Status: Resolved Priority: High Current Visit: Yes (10) Lower urinary tract infection SNOMED Code(s): 3963999 ICD Code: N39.0 - URINARY TRACT INFECTION, SITE NOT SPECIFIED Status: Acute Priority: High Current Visit: Yes (11) Multiple sclerosis SNOMED Code(s): 88653238 ICD Code: G35 - MULTIPLE SCLEROSIS Status: Chronic Priority: Medium Current Visit: Yes (12) Muscle spasms of both lower extremities SNOMED Code(s): 929605507, 523474280 ICD Code: M62.838 - OTHER MUSCLE SPASM Status: Chronic Priority: Medium Current Visit: Yes (13) Bradycardia by electrocardiogram SNOMED Code(s): 742475080 ICD Code: R00.1 - BRADYCARDIA, UNSPECIFIED Status: Chronic Priority: High Current Visit: Yes (14) Weakness SNOMED Code(s): 91570172 ICD Code: R53.1 - WEAKNESS Status: Acute Priority: High Current Visit: Yes (15) Cough SNOMED Code(s): 83379513 ICD Code: R05 - COUGH Status: Acute Priority: High Current Visit: Yes Problem List Initiated/Reviewed/Updated: Yes Orders Last 24hrs: Active Orders 24 hr Category Date Time Status Admission Status [Patient Status] [ADT] Routine ADT 03/11/19 07:11 Active EKG Documentation Completion [RC] STAT Care 03/10/19 22:10 Active CULTURE URINE [RM] Stat Lab 03/10/19 23:04 Results D5 1/2 NS w/ 40 mEq/L KCl 1,000 ml Med 03/11/19 07:15 Active IV ASDIRECTED Dextrose 5%-0.9% NaCl [Dextrose 5%-Normal Saline] 1,000 Med 03/10/19 23:45 Active ml IV ASDIRECTED Dextrose 5%-Lactated Ringers 1,000 ml Med 03/10/19 22:15 Active IV ASDIRECTED Ketorolac [Toradol] Med 03/10/19 23:30 Active 30 mg IVPUSH ONETIME cefTRIAXone [Rocephin] 2 gm Med 03/10/19 23:45 Active Sodium Chloride 0.9% [Normal Saline] 100 ml IV Q24H Medication Orders Dextrose/Lactated Ringer's (Dextrose 5%-Lactated Ringers) 1,000 mls @ 999 mls/ hr IV ASDIRECTED FRANTZ Last Admin: 03/10/19 22:31 Dose: 999 mls/hr Ceftriaxone Sodium 2 gm/ (Sodium Chloride) 100 mls @ 200 mls/hr IV Q24H [facility] Last Admin: 03/11/19 00:10 Dose: 200 mls/hr Dextrose/Sodium Chloride (Dextrose 5%-Normal Saline) 1,000 mls @ 200 mls/hr IV ASDIRECTED FRANTZ Last Admin: 03/11/19 00:54 Dose: 200 mls/hr Potassium Chloride/Dextrose/Sod Cl (D5 1/2 Ns W/ 40 Meq/L Kcl) 1,000 mls @ 150 mls/hr IV ASDIRECTED [facility] Ketorolac Tromethamine (Toradol) 30 mg IVPUSH ONETIME [facility] Last Admin: 03/10/19 23:33 Dose: 30 mg Assessment/Plan Comment:: I/P: Acute: Nausea and vomiting -Reports started this past Friday -Vomiting/dry heaving in ED -Given promethazine in ED (reportedly allergic to zofran and regalin) -No vomiting/nausea since on floor -PRN antiemetics -Denies diarrhea, hematemesis. -WBC, CRP WNL -Likely viral in origin Hypokalemia -2/2 above -Potassium 2.5 -->3.2 -Supplemented in ED -Continue supplementation Bradycardia -HR in 30's and 40's -Asymptomatic -Patient reports she has had this for years -Confirmed on ED and floor EKG -Sinus bradycardia with PVCs. Non-specific intraventricular conduction delay. Nonspecific repolarization abnormality-H -Troponin negative -TSH elevated but T4 WNL (subclinical hypothyroidism) -Not on any rate control medications -Telemetry and monitor UTI -Weak UA with cloudy urine, trace occult blood, 3+ leukocyte esterase, 5-10 RBC, 3-40 WBC, occasional WBC clumps, few amorphous sediment, many bacteria, moderate mucus. -Urine culture pending -Hx/o recurrent UTIs with last one about 6 months ago -Given 2gm rocephin in ED - switch to 1gm and continue Chronic abdominal pain of unknown origin -Has been worked up by PCP -Abdominal CT scan obtained 03/09/19 showed: * 1. United inferior and superior Pubic rami fractures on both sides. * 2. Several nonobstructing calculi within the left kidney. * 3. Nothing acute is appreciated on CT study of the abdomen and pelvis. -Rates at 10 currently -Started on PPI this past Friday - continue -Likely worsened by vomiting -H. pylori negative in clinic -Has appointment with Dr. 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 Montenegro - Mortality Measure Prognosis:: Good
[2019-03-11] MEDS ORDERED: Promethazine 12.5 MG in Sodium Chloride 0.9% 50 ML IV PRN (08:59)
[2019-03-11] MEDS ORDERED: Potassium Chloride 20 MEQ Tab.ER PO SCH (09:00)
[2019-03-11] MEDS ORDERED: cefTRIAXone 1 GM in Sodium Chloride 0.9% 100 ML IV SCH (09:00)
[2019-03-11] MEDS ORDERED: traMADol 50 MG Tab PO PRN (09:04)
[2019-03-11] MEDS ORDERED: Ketorolac 30 MG/ML SDV IVPUSH PRN (09:11)
[2019-03-11] MEDS: rOPINIRole 1 MG Tab PO SCH ×2 (09:52→20:42)
[2019-03-11] MEDS: Baclofen 10 MG Tab PO SCH ×3 (09:53→20:42)
[2019-03-11] MEDS: buPROPion 150 MG Tab.ER PO SCH (09:53)
[2019-03-11] MEDS: Cholecalciferol (Vitamin D3) 5,000 UNIT Tab PO SCH (09:53)
[2019-03-11] MEDS: Multivitamins,Therapeutic Tab PO SCH (09:53)
[2019-03-11] MEDS: Pantoprazole 40 MG Tab.CR PO SCH (09:53)
[2019-03-12] MEDS ORDERED: cefTRIAXone 1 GM in Sodium Chloride 0.9% 100 ML IV SCH ×2
[2019-03-12] MEDS ORDERED: Sodium Chloride 0.9% 1,000 ML IV SCH (08:15)
[2019-03-12] MEDS: Baclofen 10 MG Tab PO SCH (09:35)
[2019-03-12] MEDS: Cholecalciferol (Vitamin D3) 5,000 UNIT Tab PO SCH (09:36)
[2019-03-12] MEDS: buPROPion 150 MG Tab.ER PO SCH (09:36)
[2019-03-12] MEDS: Pantoprazole 40 MG Tab.CR PO SCH (09:36)
[2019-03-12] MEDS: Potassium Chloride 10 MEQ in Premix Bag 1 BAG IV SCH ×2 (09:36→11:10)
[2019-03-12] MEDS: Multivitamins,Therapeutic Tab PO SCH (09:36)
[2019-03-12] MEDS: rOPINIRole 1 MG Tab PO SCH (09:41)
--- NOTE | 2019-03-12 12:33 | PCM.DCSUM1 ---
Discharge Summary - Hospital Course HPI Initial Comments: Ann Zhu is a 68 yo female patient who presents to ED on 03/10/2019 with abdominal pain. She reports this pain is been on and off for the past 2 months but has been worse over the past 5 days and accompanied by occasional nausea and vomiting. Nausea and vomiting started on March 06. Reports intermittent epigastric pain and right lower quadrant pain but no chills. She says she has been having a low-grade fever. Denies any genitourinary complaints. She did have a cholecystectomy and total hysterectomy , along with a BSO. She reports loose diarrhea stools with no melena or hematochezia. Vomiting is bilious.Abdominal CT scan was obtained the day prior to visiting her ED and interpreted by Dr. Mirza as "1. United inferior and superior Pubic rami fractures on both sides. 2. Several nonobstructing calculi within the left kidney. 3. Nothing acute is appreciated on CT study of the abdomen and pelvis." Denies any bad food recent steroids or diarrhea. Denies any recent alcohol intake. Reports restarted on Prozac 20 mg once daily on March 08 but denies any other medications. Denies any hematemesis , cough, sputum. Reports she does feel weak and dizzy. In the ED temp was 36.9 Celsius. Pulse 104. Respirations 22. Blood pressure 194/98. Pulse ox 95%. EKG was obtained and interpreted by The ED provider as being sinus bradycardia at 46 bpm. This was obtained while the patient was dry heaving. There is severe left atrial hypertrophy and an incomplete right bundle branch block pattern with early R wave transition. Consider right ventricular hypertrophy versus septal hypertrophy pattern. Poor R wave in lead I suggest left ventricular hypertrophy pattern. There is nonspecific T wave flattening in lead III and aVF. QT is moderately prolonged. CBC is obtained and is grossly normal with no leukocytosis. BMP is obtained with a sodium of 145. A very low potassium of 2.5. Chloride 105. Carbon oxide 29. Anion gap 13.5. BUN is 8. Creatinine is elevated at 1.1. EGFR is 50. Glucose is 134. Lactic acid is 1.1. Calcium 9.6. Magnesium 2.1. Bilirubin 0.8. AST is 13, ALT 19, alkaline phosphatase 131. CRP is 0.3. Albumin is 3.7. Lipase is 81. proBNP is elevated at 447. Urine Ketones are 0.34. UA is obtained and is positive with yellow cloudy urine, trace occult blood, 3+ leukocyte esterase, 5-10 RBCs, 30-40 WBCs, occasional WBC clumps, few amorphous sediment, and many bacteria. Moderate urine mucus is also noted. She is given IV potassium in the ER along with Toradol and started on 2 g of Rocephin. She is also given IV fluids with potassium in D5NS. Repeat BMP in the morning shows a slightly elevated sodium of 146 and a potassium that has improved to 3.2. GFR is also improved to 55. She is allergic to Zofran and Reglan so Phenergan 25 mg IV is given for nausea. She continues to have nausea and vomiting and potassium remains somewhat low at 3.2. Decision was therefore made to admit her to the medical floor on telemetry observation status to control her nausea and replenish potassium. 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 PCP is Dr. Jazz Mcmahan. Diagnosis: Stroke: No - Discharge Data Discharge Date: 03/12/19 (Admit date: 03/11/18) Discharge Disposition: Home, Self-Care 01 Condition: Good - Referral to Home Health Primary Care Physician: Trae Layne MD - Discharge Diagnosis/Problem(s) (1) Osteoporosis SNOMED Code(s): 17661828 ICD Code: M81.0 - AGE-RELATED OSTEOPOROSIS W/O CURRENT PATHOLOGICAL FRACTURE Status: Chronic Priority: Medium Current Visit: No Qualifiers: Osteoporosis type: unspecified Presence of current pathological fracture: unspecified Qualified Code(s): M81.0 - Age-related osteoporosis without current pathological fracture (2) Renal calculi SNOMED Code(s): 44152900 ICD Code: N20.0 - CALCULUS OF KIDNEY Status: Chronic Priority: Low Current Visit: No (3) Muscular dystrophy SNOMED Code(s): 87474963 ICD Code: G71.00 - MUSCULAR DYSTROPHY, UNSPECIFIED Status: Chronic Priority: Medium Current Visit: Yes (4) Recurrent UTI SNOMED Code(s): 132289733 ICD Code: N39.0 - URINARY TRACT INFECTION, SITE NOT SPECIFIED Status: Chronic Priority: Medium Current Visit: Yes (5) Depression SNOMED Code(s): 14638577 ICD Code: F32.9 - MAJOR DEPRESSIVE DISORDER, SINGLE EPISODE, UNSPECIFIED Status: Chronic Priority: Low Current Visit: No Qualifiers: Depression Type: other depression Qualified Code(s): F32.89 - Other specified depressive episodes (6) Vitamin D deficiency SNOMED Code(s): 92488387 ICD Code: E55.9 - VITAMIN D DEFICIENCY, UNSPECIFIED Status: Chronic Priority: Low Current Visit: No (7) Chronic abdominal pain SNOMED Code(s): 354261628 ICD Code: R10.9 - UNSPECIFIED ABDOMINAL PAIN; G89.29 - OTHER CHRONIC PAIN Status: Acute Priority: High Current Visit: Yes (8) Hypokalemia due to excessive gastrointestinal loss of potassium SNOMED Code(s): 75363385 ICD Code: E87.6 - HYPOKALEMIA Status: Acute Priority: High Current Visit: Yes (9) Intractable nausea and vomiting SNOMED Code(s): 600299875 ICD Code: R11.2 - NAUSEA WITH VOMITING, UNSPECIFIED Status: Resolved Priority: High Current Visit: Yes (10) Lower urinary tract infection SNOMED Code(s): 9600583 ICD Code: N39.0 - URINARY TRACT INFECTION, SITE NOT SPECIFIED Status: Acute Priority: High Current Visit: Yes (11) Multiple sclerosis SNOMED Code(s): 79988744 ICD Code: G35 - MULTIPLE SCLEROSIS Status: Chronic Priority: Medium Current Visit: Yes (12) Muscle spasms of both lower extremities SNOMED Code(s): 047739233, 968793976 ICD Code: M62.838 - OTHER MUSCLE SPASM Status: Chronic Priority: Medium Current Visit: Yes (13) Bradycardia by electrocardiogram SNOMED Code(s): 326230277 ICD Code: R00.1 - BRADYCARDIA, UNSPECIFIED Status: Chronic Priority: High Current Visit: Yes (14) Weakness SNOMED Code(s): 68884582 ICD Code: R53.1 - WEAKNESS Status: Acute Priority: High Current Visit: Yes (15) Cough SNOMED Code(s): 69168968 ICD Code: R05 - COUGH Status: Acute Priority: High Current Visit: Yes (16) Viral gastroenteritis SNOMED Code(s): 783794278 ICD Code: A08.4 - VIRAL INTESTINAL INFECTION, UNSPECIFIED Status: Acute Priority: High Current Visit: Yes - Patient Summary/Data Consults: Consultations 03/11/19 08:59 Consult to Case Management/Reservations Clerk [CONS] Routine Consult to Electrician Crane Maintenance [CONS] Routine Consult to Spiritual Care [CONS] Routine OT Evaluation and Treatment [CONS] Routine PT Evaluation and Treatment [CONS] Routine Labs Pending at D/C: Respiratory viral panel. Recommended Follow-up Testing/Procedures: Follow-up with PCP within 7-10 days of discharge, sooner if needed. Follow-up with general surgery as scheduled. Hospital Course: Ann was admitted to the floor with abdominal pain, nausea, vomiting, and hypokalemia. She was placed on telemetry and although she had been given potassium supplements overnight in the ED her potassium remained low. These continued throughout the day. She never did have any nausea or vomiting while on the floor and her abdominal pain was reported at 1 out of 10. Prior to discharge she did say the abdominal pain would come and go but at its maximum was again 1 out of 10. She was being worked up for this abdominal pain by her primary care provider and already had a general surgery consult with Dr. Tapia scheduled for this coming 03/15/2019. Repeat labs this morning showed potassium of 3.5 and she was given 2 potassium riders of 10 mEq prior to discharge. All home medications were otherwise continued, including her home potassium supplement.. Her urine in the ED did return positive for UTI and although the patient did not report any urinary symptoms, given her chronic conditions is felt this should be treated as she may be unable to feel these. She was given 1 g Rocephin and ultimately switched to 500 mg 4 times daily Keflex at discharge. She should continue this for 3 more days, which would be a total of 5 days of treatment. She does have a history of urinary tract infections with group B strep and her urine culture here was returning gram- positive cocci of 90-100,000. She did see PT and OT while here they were recommending outpatient OT, which the patient is refusing. She was given an order for this should she change her mind. She was advised that she should ambulate with a walker, which she says she has at home but does not use. She should follow-up with her primary care provider within 7 to 10 days of discharge. She should follow-up with general surgery as already scheduled as she may benefit from endoscopy due to this chronic epigastric pain. She was instructed to return to the emergency room or contact her primary care provider should symptoms return or worsen. She was discharged today. - Patient Instructions Diet: Usual Diet as Tolerated Activity: As Tolerated Notify Provider of: Fever, Increased Pain, Nausea and/or Vomiting Other/Special Instructions: Follow-up with primary care provider within 7-10 days of discharge. Follow-up with general surgery at already scheduled appointment. Resume home medications as directed. Take all of your antibiotic as prescribed until completed, even if you feel 100%. Should symptoms return or worsen contact primary care provider or return to the emergency department. - Discharge Plan *PRESCRIPTION DRUG MONITORING PROGRAM REVIEWED*: No *COPY OF PRESCRIPTION DRUG MONITORING REPORT IN PATIENT CRISELDA: No Prescriptions/Med Rec: Cephalexin [Keflex] 500 mg PO QID #12 capsule Home Medications: Home Meds Baclofen 20 mg PO TID 07/29/15 [History] Cranberry Caps 500 mg PO DAILY 07/29/15 [History] Multivitamin [Multivitamins] 2 cap PO BID 07/29/15 [History] Oclu Med 1 drop EYEBOTH BID 07/29/15 [History] Psyllium 700 mg PO DAILY 07/29/15 [History] rOPINIRole [Requip] 1 mg PO BID 07/29/15 [History] Magnesium Malate 1,000 mg PO QID 08/03/17 [History] traMADol [Ultram] 50 mg PO Q4HR PRN 08/03/17 [History] Ascorbic Acid [Vitamin C] 1,000 mg PO DAILY 03/10/19 [History] Cholecalciferol (Vitamin D3) [Vitamin D] 5,000 units PO DAILY 03/10/19 [History] Denosumab [Prolia] 60 mg SQ ASDIRECTED 03/10/19 [History] Omeprazole Magnesium [Prilosec Otc] 20 mg PO DAILY 03/10/19 [History] buPROPion [buPROPion XL] 150 mg PO DAILY 03/10/19 [History] Cephalexin [Keflex] 500 mg PO QID #12 capsule 03/12/19 [Rx] Oxygen Therapy Mode: Room Air Patient Handouts: Viral Gastroenteritis, Adult, [id number], Hypokalemia, Sepsis, Adult, Urinary Tract Infection, Adult, Potassium Content of Foods Referrals: Trae Layne MD [Primary Care Provider] - 03/23/19 9:00 am (Please check in before 8:45am.) - Discharge Summary/Plan Comment DC Time >30 min.: Yes (45 mins ) - General Info Date of Service: 03/12/19 Admission Dx/Problem (Free Text: Admission Diagnosis/Problem Admission Diagnosis/Problem Nausea and vomiting in adult patient Functional Status: Reports: Pain Controlled, Tolerating Diet, Ambulating, Urinating. Denies: New Symptoms - Review of Systems General: Reports: No Symptoms. Denies: Fever, Weakness, Fatigue, Malaise, Chills HEENT: Reports: No Symptoms. Denies: Headaches, Sore Throat Pulmonary: Reports: No Symptoms, Cough (occasional ). Denies: Shortness of Breath, Wheezing Cardiovascular: Reports: No Symptoms. Denies: Chest Pain, Palpitations, Dyspnea on Exertion Gastrointestinal: Reports: Abdominal Pain (mild occasional epigastric ). Denies : Constipation, Diarrhea, Nausea, Vomiting Genitourinary: Reports: No Symptoms. Denies: Pain Musculoskeletal: Reports: No Symptoms Skin: Reports: No Symptoms. Denies: Cyanosis Neurological: Reports: Numbness, Pre-Existing Deficit (2/2 MS ), Tingling, Other (Bilateral leg spasms which are improving this AM after being pretty severe per patient ). Denies: Confusion Psychiatric: Reports: No Symptoms - Patient Data Vitals - Most Recent: Last Vital Signs Temp 97.9 F 03/12/19 07:54 Pulse 50 L 03/12/19 07:54 Resp 19 03/12/19 07:54 BP 158/67 H 03/12/19 07:54 Pulse Ox 97 03/12/19 07:54 Weight - Most Recent: 216 lb 9.6 oz I&O - Last 24 hours: Intake & Output 03/11/19 03/12/19 03/12/19 22:59 06:59 14:59 Intake Total 2200 900 0 Output Total 1350 1600 Balance 850 -700 0 Lab Results - Last 24 hrs: Laboratory Results - last 24 hr 03/12/19 03/12/19 Range/Units 05:16 05:16 WBC 5.44 (3.98-10.04) K/mm3 RBC 3.92 L (3.98-5.22) M/mm3 Hgb 12.2 D (11.2-15.7) gm/dl Hct 38.1 (34.1-44.9) % MCV 97.2 H D (79.4-94.8) fl MCH 31.1 (25.6-32.2) pg MCHC 32.0 L (32.2-35.5) g/dl RDW Std Deviation 47.9 H (36.4-46.3) fL Plt Count 239 (182-369) K/mm3 MPV 10.0 (9.4-12.3) fl Neut % (Auto) 48.5 (34.0-71.1) % Lymph % (Auto) 37.3 (19.3-51.7) % Stephens % (Auto) 9.2 (4.7-12.5) % Eos % (Auto) 4.2 (0.7-5.8) Baso % (Auto) 0.6 (0.1-1.2) % Neut # (Auto) 2.64 (1.56-6.13) K/mm3 Lymph # (Auto) 2.03 (1.18-3.74) K/mm3 Stephens # (Auto) 0.50 H (0.24-0.36) K/mm3 Eos # (Auto) 0.23 (0.04-0.36) K/mm3 Baso # (Auto) 0.03 (0.01-0.08) K/mm3 Sodium 142 (136-145) mEq/L Potassium 3.5 (3.5-5.1) mEq/L Chloride 107 (98-107) mEq/L Carbon Dioxide 26 (21-32) mEq/L Anion Gap 12.5 (5-15) BUN 8 (7-18) mg/dL Creatinine 1.0 (0.55-1.02) mg/dL Est Cr Clr Drug Dosing 52.95 mL/min Estimated GFR (MDRD) 55 (>60) mL/min BUN/Creatinine Ratio 8.0 L (14-18) Glucose 90 (80-115) mg/dL Calcium 8.9 (8.5-10.1) mg/dL Magnesium 1.8 (1.8-2.4) mg/dl OTIS Results - Last 24 hrs: Microbiology 03/10/19 23:04 Urine Culture - Preliminary Urine, Bladder Gram Positive Cocci Med Orders - Current: Current Medications Baclofen (Lioresal) 20 mg PO TID [facility] Last Admin: 03/12/19 09:35 Dose: 20 mg Bupropion HCl (Wellbutrin Xl) 150 mg PO DAILY [facility] Last Admin: 03/12/19 09:36 Dose: 150 mg Cholecalciferol (Vitamin D3) 5,000 unit PO DAILY [facility] Last Admin: 03/12/19 09:36 Dose: 5,000 unit Promethazine HCl 12.5 mg/ (Sodium Chloride) 50.5 mls @ 100 mls/hr IV Q6H PRN PRN Reason: Nausea/Vomiting Ceftriaxone Sodium 1 gm/ (Sodium Chloride) 100 mls @ 200 mls/hr IV Q24H [facility] Last Admin: 03/12/19 00:29 Dose: 200 mls/hr Sodium Chloride (Normal Saline) 1,000 mls @ 50 mls/hr IV ASDIRECTED [facility] Ketorolac Tromethamine (Toradol) 30 mg IVPUSH Q8H PRN PRN Reason: Pain Multivitamins (Thera) 1 each PO DAILY [facility] Last Admin: 03/12/19 09:36 Dose: 1 each Pantoprazole Sodium (Protonix) 40 mg PO DAILY [facility] Last Admin: 03/12/19 09:36 Dose: 40 mg Ropinirole HCl (Requip) 1 mg PO BID [facility] Last Admin: 03/12/19 09:41 Dose: Not Given Tramadol HCl (Ultram) 50 mg PO Q4H PRN PRN Reason: Pain Discontinued Medications Baclofen (Lioresal) 20 mg PO ONETIME ONE Stop: 03/10/19 23:23 Last Admin: 03/10/19 23:35 Dose: 20 mg Dextrose/Lactated Ringer's (Dextrose 5%-Lactated Ringers) 1,000 mls @ 999 mls/ hr IV ASDIRECTED [facility] Last Admin: 03/10/19 22:31 Dose: 999 mls/hr Promethazine HCl 25 mg/ Sodium (Chloride) 51 mls @ 100 mls/hr IV ONETIME ONE Stop: 03/10/19 22:48 Last Admin: 03/10/19 22:32 Dose: 100 mls/hr Potassium Chloride 10 meq/ (Premix) 100 mls @ 100 mls/hr IV Q1H [facility] Stop: 03/11/19 05:14 Last Admin: 03/11/19 06:11 Dose: 100 mls/hr Lactated Ringer's (Ringers, Lactated) 1,000 mls @ 200 mls/hr IV ASDIRECTED [facility] Ceftriaxone Sodium 2 gm/ (Sodium Chloride) 100 mls @ 200 mls/hr IV Q24H [facility] Last Admin: 03/11/19 00:10 Dose: 200 mls/hr Dextrose/Sodium Chloride (Dextrose 5%-Normal Saline) 1,000 mls @ 200 mls/hr IV ASDIRECTED [facility] Last Admin: 03/11/19 00:54 Dose: 200 mls/hr Promethazine HCl 25 mg/ Sodium (Chloride) 51 mls @ 100 mls/hr IV ONETIME ONE Stop: 03/11/19 04:23 Last Admin: 03/11/19 04:35 Dose: 100 mls/hr Potassium Chloride/Dextrose/Sod Cl (D5 1/2 Ns W/ 40 Meq/L Kcl) 1,000 mls @ 150 mls/hr IV ASDIRECTED [facility] Last Admin: 03/11/19 10:06 Dose: 150 mls/hr Potassium Chloride 10 meq/ (Premix) 100 mls @ 100 mls/hr IV Q1H [facility] Stop: 03/12/19 09:59 Last Admin: 03/12/19 11:10 Dose: 100 mls/hr Ketorolac Tromethamine (Toradol) 30 mg IVPUSH ONETIME [facility] Last Admin: 03/10/19 23:33 Dose: 30 mg Lorazepam (Ativan) 1 mg IVPUSH ONETIME ONE Stop: 03/10/19 23:54 Last Admin: 03/10/19 23:59 Dose: 1 mg Ondansetron HCl (Zofran) 4 mg IVPUSH ONETIME ONE Stop: 03/10/19 22:11 Last Admin: 03/10/19 22:18 Dose: Not Given Potassium Chloride (Klor-Con M20) 40 meq PO BID [facility] Stop: 03/11/19 21:01 Last Admin: 03/11/19 18:51 Dose: Not Given Ropinirole HCl (Requip) 1 mg PO ONETIME ONE Stop: 03/10/19 23:23 Last Admin: 03/10/19 23:35 Dose: 1 mg - Exam Quality Assessment: Reports: DVT Prophylaxis General: Reports: Alert, Oriented, Cooperative, No Acute Distress HEENT: Reports: Pupils Equal, Pupils Reactive, Mucous Membr. Moist/[place] Neck: Reports: Supple, Trachea Midline Lungs: Reports: Clear to Auscultation, Normal Respiratory Effort Cardiovascular: Reports: Regular Rate, Regular Rhythm GI/Abdominal Exam: Normal Bowel Sounds, Soft, Non-Tender, No Distention, No Abnormal Bruit (Female) Exam: Deferred Rectal (Female) Exam: Deferred Back Exam: Reports: Normal Inspection, Full Range of Motion Extremities: Normal Inspection, Normal Range of Motion, Non-Tender, No Pedal Edema, Normal Capillary Refill Skin: Reports: Warm, Dry, Intact Neurological: Reports: No New Focal Deficit Psy/Mental Status: Reports: Alert, Normal Affect, Normal Mood
[2019-03-12 13:37] VITALS: BP 159/62; PULSE 55
== END 2019-03-12 14:50 | disposition home or self-care (01) ==
LOC: JD.ED 21:51 → JD.MS 03-11 07:11
PROVIDERS: ADMIT Family Medicine; ATTEND Family Medicine
DX: E87.6 Hypokalemia (principal); N39.0 Urinary tract infection, site not specified; B96.89 Other specified bacterial agents as the cause of diseases classified elsewhere; I49.3 Ventricular premature depolarization; G89.29 Other chronic pain; R10.31 Right lower quadrant pain; R10.13 Epigastric pain; G35 Multiple sclerosis; G71.00 Muscular dystrophy, unspecified; M81.0 Age-related osteoporosis without current pathological fracture; N20.0 Calculus of kidney; F32.9 Major depressive disorder, single episode, unspecified; E55.9 Vitamin D deficiency, unspecified; Z88.8 Allergy status to other drugs, medicaments and biological substances; Z91.048 Other nonmedicinal substance allergy status; Z88.6 Allergy status to analgesic agent; Z88.1 Allergy status to other antibiotic agents; Z91.09 Other allergy status, other than to drugs and biological substances; Z88.2 Allergy status to sulfonamides; Z88.7 Allergy status to serum and vaccine; Z79.899 Other long term (current) drug therapy; Z87.891 Personal history of nicotine dependence; Z90.49 Acquired absence of other specified parts of digestive tract; Z90.710 Acquired absence of both cervix and uterus
CPT/HCPCS: 36415; 74018; 80048; 80053; 81001; 82009; 83605; 83690; 83735; 83880; 84439; 84443; 84484; 85007; 85025; 85027; 86140; 87086; 87088; 87181; 87184; 87486; 87581; 87632; 87798; 93005; 96361; 96365; 96366; 96367; 96375; 97116; 97162; 97165; 97535; 99285; A9270; J0696; J1885; J2060; J2550; J3480; J7030; J7042; J7050; J7121

== ENCOUNTER 2019-04-06 07:47 | Day surgery (SDC) | payer MEDICARE, BC ==
[~2019-04-06 07:47] MED LIST: Lactated Ringers 1,000 ML IV SCH; Lidocaine 1% 0 ML ONE; Lidocaine 1%/Sod Bicarbonate in NS 8.4% 1 ML Syringe IDERM PRN; Propofol 200 MG/20 ML SDV ONE; Sodium Chloride 0.9% 10 ML Syringe FLUSH PRN
--- NOTE | 2019-04-06 08:13 | PCM.PREANE ---
Preanesthetic Assessment - Procedure Proposed Procedure: Diag egd diag colon - Anesthesia/Transfusion/Family Hx Anesthesia History: Prior Anesthesia Without Reaction Family History of Anesthesia Reaction: No Transfusion History: Prior Transfusion Without Reaction - Review of Systems General: No Symptoms Pulmonary: No Symptoms Cardiovascular: Dyspnea on Exertion (limited with mobility) Gastrointestinal: Nausea, Vomiting Neurological: Difficulty Walking, Weakness (right side), Other (MS) Other: Reports: Depression, Anxiety - Physical Assessment NPO Status Date: 04/05/19 NPO Status Time: 02:00 (sip with pills) Vital Signs: 136/1516933 1698.4 Height: 5 ft 7 in Weight: 96.162 kg ASA Class: 3 Mental Status: Alert & Oriented x3 Airway Class: Mallampati = 1 Dentition: Reports: Normal Dentition Thyro-Mental Finger Breadths: 3 Mouth Opening Finger Breadths: 3 ROM/Head Extension: Full Lungs: Clear to Auscultation, Normal Respiratory Effort Cardiovascular: Regular Rate, Regular Rhythm - Allergies Allergies/Adverse Reactions: Allergies Allergy/AdvReac Type Severity Reaction Status Date / Time adhesive Allergy Swelling Verified 04/05/19 14:05 bacitracin Allergy Rash Verified 04/05/19 14:05 gramicidin D Allergy Rash Verified 04/05/19 14:05 metronidazole Allergy Rash Verified 04/05/19 14:05 neomycin Allergy Rash Verified 04/05/19 14:05 pneumococcal vaccine Allergy Rash Verified 04/05/19 14:05 polymyxin B Allergy Rash Verified 04/05/19 14:05 silicone Allergy Redness Verified 04/05/19 14:05 Sulfa (Sulfonamide Allergy Rash Verified 04/05/19 14:05 Antibiotics) teriflunomide [From Aubagio] Allergy Other Verified 04/05/19 14:05 acetaminophen [From Percocet] AdvReac Nausea and Verified 04/05/19 14:05 Vomiting dimethyl fumarate AdvReac Other Verified 04/05/19 14:05 [From Tecfidera] glatiramer acetate AdvReac Other Verified 04/05/19 14:05 [From Copaxone] hydroxyzine AdvReac Agitation Verified 04/05/19 14:05 interferon beta-1a AdvReac Other Verified 04/05/19 14:05 [From Avonex] oxycodone [From Percocet] AdvReac Nausea and Verified 04/05/19 14:05 Vomiting - Blood Blood Available: No - Acknowledgements Anesthesia Type Planned: MAC Pt an Appropriate Candidate for the Planned Anesthesia: Yes Alternatives and Risks of Anesthesia Discussed w Pt/Guardian: Yes Pt/Guardian Understands and Agrees with Anesthesia Plan: Yes PreAnesthesia Questionnaire HEENT History: Reports: Impaired Vision Other HEENT History: dry eyes, gingiva lesion, wears glasses Cardiovascular History: Reports: Heart Failure Other Cardiovascular History: chest pressure Respiratory History: Reports: None Gastrointestinal History: Reports: Other (See Below) Other Gastrointestinal History: chronic abdominal pain, bowel wall thickening, diarrhea, nausea, vomiting Genitourinary History: Reports: Renal Calculus, Urinary Incontinence, UTI, Recurrent POLICE ACADEMY PROGRAM COORDINATOR History: Reports: None Musculoskeletal History: Reports: Muscular Dystrophy, Osteoarthritis, Osteoporosis, RA Other Musculoskeletal History: multiple sclerosis, ataxia, knee/hip arthralgias , pelvic fractures Neurological History: Reports: MS, Other (See Below) Other Neuro History: impaired cognitive function Psychiatric History: Reports: Depression, Other (See Below) Other Psychiatric History: fatigue, chronic pain Endocrine/Metabolic History: Reports: Osteoporosis, Vitamin D Deficiency Hematologic History: Reports: None Immunologic History: Reports: None Oncologic (Cancer) History: Reports: None Dermatologic History: Reports: None - Infectious Disease History Infectious Disease History: Reports: Chicken Pox, Measles - Past Surgical History Head Surgeries/Procedures: Reports: None HEENT Surgical History: Reports: Tonsillectomy Respiratory Surgical History: Reports: None GI Surgical History: Reports: Cholecystectomy Female Surgical History: Reports: Hysterectomy Male Surgical History: Reports: None Neurological Surgical History: Reports: None Musculoskeletal Surgical History: Reports: Arthroscopic Procedure, Carpal Tunnel , Knee Replacement Oncologic Surgical History: Reports: None Dermatological Surgical History: Reports: None - SUBSTANCE USE Smoking Status *Q: Never Smoker Tobacco Use Within Last Twelve Months: No Second Hand Smoke Exposure: No Days Per Week of Alcohol Use: 0 Recreational Drug Use History: No - HOME MEDS Home Medications: Home Meds Baclofen 20 mg PO QID 07/29/15 [History] rOPINIRole [Requip] 1 mg PO BID 07/29/15 [History] Ascorbic Acid [Vitamin C] 1,000 mg PO DAILY 03/10/19 [History] Cholecalciferol (Vitamin D3) [Vitamin D] 5,000 units PO DAILY 03/10/19 [History] Denosumab [Prolia] 60 mg SQ ASDIRECTED 03/10/19 [History] Omeprazole Magnesium [Prilosec Otc] 20 mg PO DAILY 03/10/19 [History] buPROPion [buPROPion XL] 150 mg PO DAILY 03/10/19 [History] Amoxicillin 2,000 mg PO ONETIME PRN 04/05/19 [History] Calcium Carbonate [Calcium] 1,000 mg PO BID 04/05/19 [History] Cider Vinegar [Apple Cider Vinegar] 500 mg PO DAILY 04/05/19 [History] Collagenase Clostridium Hist. [Collagenase] 1 dose PO DAILY 04/05/19 [History] Cranberry 500 mg PO BID 04/05/19 [History] Cyanocobalamin (Vitamin B-12) [Vitamin B-12] 1,000 mcg PO Q72H 04/05/19 [History ] Docosahexanoic Acid [DHA] 200 mg PO BID 04/05/19 [History] Marshmallow Root 2 tab PO BID 04/05/19 [History] Meclizine [Antivert] 25 mg PO TID 04/05/19 [History] Multivitamin [Daily Multiple Vitamin] 1 tab PO DAILY 04/05/19 [History] Ondansetron HCl [Zofran] 8 mg PO Q6H 04/05/19 [History] Polyvinyl Alcohol [Tears Again] 1 drop EYEBOTH QID 04/05/19 [History] Psyllium Husk/Laxative No.1 [Colox] 750 mg PO DAILY 04/05/19 [History] Strontium 680 Mg 680 mg PO DAILY 04/05/19 [History] Turmeric 1,200 mg PO DAILY 04/05/19 [History] diazePAM [Valium] 1 mg PO BEDTIME 04/05/19 [History] - CURRENT (IN HOUSE) MEDS Current Meds: Current Medications Lactated Ringer's (Ringers, Lactated) 1,000 mls @ 125 mls/hr IV ASDIRECTED [facility] Stop: 04/06/19 23:00 Lidocaine/Sodium Bicarbonate (Buffered Lidocaine 1% In Ns 8.4%) 0.25 ml IDERM ONETIME PRN PRN Reason: Prior to IV Start Stop: 04/06/19 18:00 Sodium Chloride (Saline Flush) 10 ml FLUSH ASDIRECTED PRN PRN Reason: Keep Vein Open Stop: 04/06/19 18:00 Discontinued Medications Lidocaine HCl (Xylocaine-Mpf 1%) Confirm Administered Dose 4 mls @ as directed .ROUTE .STK-MED ONE Stop: 04/06/19 07:06 Propofol (Diprivan 20 Ml) Confirm Administered Dose 200 mg .ROUTE .STK-MED ONE Stop: 04/06/19 07:06
[2019-04-06] MEDS ORDERED: Lidocaine 1% 4 ML ONE (08:26)
[2019-04-06] MEDS ORDERED: Propofol 200 MG/20 ML SDV ONE ×2 (08:26→08:47)
--- NOTE | 2019-04-06 09:25 | PCM48HPAN ---
Post Anesthesia Note - EVALUATION WITHIN 48HRS OF ANESTHETIC Vital Signs in Normal Range: Yes Patient Participated in Evaluation: Yes Respiratory Function Stable: Yes Airway Patent: Yes Cardiovascular Function Stable: Yes Hydration Status Stable: Yes Pain Control Satisfactory: Yes Nausea and Vomiting Control Satisfactory: Yes Mental Status Recovered: Yes Vital Signs: Last Vital Signs Temp 36.9 C 04/06/19 07:50 Pulse 55 L 04/06/19 07:50 Resp 16 04/06/19 07:50 BP 136/71 04/06/19 07:50 Pulse Ox 99 04/06/19 07:50
--- NOTE | 2019-04-06 09:26 | PCM.PRNOTE ---
- Free Text/Narrative Note: Date: 04/06/2019 Procedure(s): diagnostic esophagogastroduodenoscopy, screening colonoscopy Endoscopist: Rod Tapia MD Findings: grossly normal duodenum and gastric mucosa. Moderate size hiatal hernia. No gross esophageal lesion. External hemorrhoids, grade 1 internal hemorrhoids, extensive sigmoid diverticulosis. No polyps identified. Ileocecal valve visualized, prep was very good. Detailed Report: The patient was taken to the endoscopy suite and placed in left lateral decubitus position. Time out was performed, and monitored anesthesia care initiated. A bite block was placed and lubricated endoscope inserted into the mouth and advanced to the second portion of the duodenum easily. Duodenal mucoas appeared normal. The pyloric antrum appeared normal. There was a moderated hiatal hernia noted on retroflexion with some mild irritation noted of the herniated cardia. The Z line appeared normal with no evidence of esophagitis. Sample biopsies were obtained of the duodenum, stomach and esophagus. Next, colonoscopy was performed. Visual inspection of the anus revealed significant external hemorrhoids. Digital rectal exam was unremarkable. The lubricated colonoscope was inserted and advanced all the way to the ileocecal valve. Prep was very good. On slow withdrawal of the scope, mucosal surfaces were carefully inspected. No polyps were identified in the colon. There was extensive diverticular disease of the sigmoid colon. On retroflexion of the scope in the rectum, internal hemorrhoids were appreciated, and a small lesion grossly consistent with a hyperplastic polyp was noted just superior to the anorectal complex. The scope was then completely withdrawn. The patient tolerated the procedure well. Rod Tapia MD General Surgery
[2019-04-06 10:10] VITALS: BP 135/91; PULSE 58
== END 2019-04-06 10:17 | disposition home or self-care (01) ==
LOC: JD.SDS 07:47
PROVIDERS: ATTEND Surgery
DX: Z12.11 Encounter for screening for malignant neoplasm of colon (principal); K44.9 Diaphragmatic hernia without obstruction or gangrene; K64.4 Residual hemorrhoidal skin tags; K64.0 First degree hemorrhoids; K57.30 Diverticulosis of large intestine without perforation or abscess without bleeding; K29.50 Unspecified chronic gastritis without bleeding; I11.0 Hypertensive heart disease with heart failure; I50.9 Heart failure, unspecified; M19.90 Unspecified osteoarthritis, unspecified site; M81.0 Age-related osteoporosis without current pathological fracture; F32.9 Major depressive disorder, single episode, unspecified; E55.9 Vitamin D deficiency, unspecified; M06.9 Rheumatoid arthritis, unspecified; Z88.8 Allergy status to other drugs, medicaments and biological substances; Z88.1 Allergy status to other antibiotic agents; Z88.5 Allergy status to narcotic agent; Z88.7 Allergy status to serum and vaccine; Z88.2 Allergy status to sulfonamides; Z91.048 Other nonmedicinal substance allergy status; Z79.899 Other long term (current) drug therapy; Z91.018 Allergy to other foods
CPT/HCPCS: 43239; G0121; J2001; J2704; J7120; 00813; 88305

== ENCOUNTER 2021-05-12 18:12 | Inpatient (IN) | payer MEDICARE ==
[2021-05-12] MEDS ORDERED: HYDROmorphone 0.5 MG/0.5 ML Syringe IVPUSH ONE (18:52)
[2021-05-12] MEDS ORDERED: Sodium Chloride 0.9% 1,000 ML IV SCH (19:00)
[2021-05-12] MEDS: Ondansetron 4 MG/2 ML SDV IVPUSH ONE ×2 (19:12→23:33)
[2021-05-12] MEDS ORDERED: Sodium Chloride 0.9% 10 ML SDV FLUSH ONE (20:56)
[2021-05-12] MEDS ORDERED: Diatrizoate Meglumine/Diatrizoate Sodium 37% 120 ML Bottle PO ONE (20:56)
[2021-05-12] MEDS ORDERED: Iopamidol 612 MG/ML 100 ML Bottle IVPUSH ONE (20:56)
[2021-05-12] MEDS ORDERED: metroNIDAZOLE 500 MG Tab PO ONE (23:12)
[2021-05-12] MEDS ORDERED: Levofloxacin 250 MG Tab PO ONE (23:12)
[2021-05-12] MEDS ORDERED: Piperacillin/Tazobactam 4.5 GM in Sodium Chloride 0.9% 100 ML IV ONE (23:31)
[2021-05-13] MEDS ORDERED: HYDROmorphone 0.5 MG/0.5 ML Syringe IVPUSH PRN ×2 (00:37→07:00)
[2021-05-13] MEDS ORDERED: Ondansetron 4 MG/2 ML SDV IVPUSH PRN (00:39)
[2021-05-13] MEDS ORDERED: Lactated Ringers 1,000 ML IV SCH (00:45)
[2021-05-13] MEDS ORDERED: Docusate Sodium 100 MG Cap PO PRN (07:00)
[2021-05-13] MEDS ORDERED: Ibuprofen 400 MG Tab PO PRN (07:00)
[2021-05-13] MEDS ORDERED: Acetaminophen 325 MG Tab PO PRN (08:24)
[2021-05-13] MEDS: Heparin Sodium 5,000 Units/ML Vial SUBCUT SCH ×3 (08:30→22:34)
[2021-05-13] MEDS: Piperacillin/Tazobactam 4.5 GM in Sodium Chloride 0.9% 100 ML IV SCH ×3 (08:35→23:19)
[2021-05-13] MEDS ORDERED: ASHWAGANDHA ROOT EXTRACT 500 MG PO SCH (09:00)
[2021-05-13] MEDS ORDERED: HAWTHORN PO SCH (09:00)
[2021-05-14] MEDS: Heparin Sodium 5,000 Units/ML Vial SUBCUT SCH ×3 (06:20→23:16)
[2021-05-14] MEDS: Piperacillin/Tazobactam 4.5 GM in Sodium Chloride 0.9% 100 ML IV SCH ×2 (08:12→15:57)
[2021-05-15] MEDS: Piperacillin/Tazobactam 4.5 GM in Sodium Chloride 0.9% 100 ML IV SCH ×2 (01:02→08:06)
[2021-05-15] MEDS: Heparin Sodium 5,000 Units/ML Vial SUBCUT SCH (06:07)
[2021-05-15 11:58] VITALS: BP 118/84; PULSE 46
[2021-05-15] MEDS ORDERED: Cephalexin 250 MG Cap PO SCH (15:00)
== END 2021-05-15 13:45 | disposition home or self-care (01) | DRG 392 ==
LOC: JD.ED 18:12 → JD.MS 23:38 → OBSVTOIN 23:38 → JD.MS 05-13 00:02
PROVIDERS: ADMIT Internal Medicine; ATTEND Pediatrics
DX: K57.32 Diverticulitis of large intestine without perforation or abscess without bleeding (principal); N12 Tubulo-interstitial nephritis, not specified as acute or chronic; Q44.4 Choledochal cyst; H54.7 Unspecified visual loss; I50.9 Heart failure, unspecified; M19.90 Unspecified osteoarthritis, unspecified site; M81.0 Age-related osteoporosis without current pathological fracture; R10.9 Unspecified abdominal pain; E55.9 Vitamin D deficiency, unspecified; Z87.440 Personal history of urinary (tract) infections; H04.129 Dry eye syndrome of unspecified lacrimal gland; G89.29 Other chronic pain; M06.9 Rheumatoid arthritis, unspecified; G71.00 Muscular dystrophy, unspecified; G35 Multiple sclerosis; Z79.899 Other long term (current) drug therapy; Z88.2 Allergy status to sulfonamides; Z88.5 Allergy status to narcotic agent; Z88.1 Allergy status to other antibiotic agents; Z91.09 Other allergy status, other than to drugs and biological substances; Z91.048 Other nonmedicinal substance allergy status; Z88.7 Allergy status to serum and vaccine; Z88.6 Allergy status to analgesic agent; Z90.710 Acquired absence of both cervix and uterus; Z90.49 Acquired absence of other specified parts of digestive tract; Z87.442 Personal history of urinary calculi; Z88.8 Allergy status to other drugs, medicaments and biological substances; Z91.018 Allergy to other foods
CPT/HCPCS: 36415; 74019; 74177; 80053; 81001; 83605; 85007; 85027; 86140; 87086; J2405; J7030; Q9963; Q9967; 36410; 76937; 85025; 96374; 99100; 99285; 99285-25; A9270-GY; J2543; J7120